=== PATIENT | male | born 1970 | race Caucasian/White ===

== ENCOUNTER 2016-11-28 11:45 | Emergency (ER) | payer SELFPAY ==
[~2016-11-28] VITALS: Ht 167.6 cm; Wt 86.2 kg
[2016-11-28 11:45] VITALS: BP 152/97
[~2016-11-28 11:45] MED LIST: ALPR2TAB2 PO; CIPR500T94 PO; DIAZ5TAB PO; FLUO40CA9 PO; HYDR-2678 PO; HYDR-971 PO; METR500T PO; OXYC-323 PO; PROP20TA PO; TRAZ100T12 PO
[2016-11-28] MEDS ORDERED: ALPR2TAB2 PO (11:59)
--- NOTE | 2016-11-28 11:59 | PHYS DOC ---
Past Medical History Past Medical History: Diverticulitis, Hypertension, [place], Migraines, Other Additional Past Medical Histor: CHRONIC BACK PAIN Past Surgical History: Angioplasty, Appendectomy, Other Additional Past Surgical Histo: hip, foot, hand, heart cath Alcohol Use: Occasionally Drug Use: Marijuana Adult General Chief Complaint Chief Complaint: BACK PAIN OR INJURY HPI HPI Patient is a 46 year old male with history of anxiety, hypertension, diverticulitis, migraine headaches, and CA who presents today with anxiety. Patient states he is going through a lot of stress. He states he stays with his mother and they lost their home due to finances. He states they had to give up all of their pets. Patient states as a result he has had a lot of anxiety. He states he cannot sleep. He states is very restless. Patient denies any suicidal homicidal ideation. He states is an appointment with his PCP for follow-up in 2 weeks to get his anxiety medicine. He is requesting a prescription for Xanax. Review of Systems Review of Systems Constitutional: Denies fever or chills [] Eyes: Denies change in visual acuity, redness, or eye pain [] HENT: Denies nasal congestion or sore throat [] Respiratory: Denies cough or shortness of breath [] Cardiovascular: No additional information not addressed in HPI [] GI: Denies abdominal pain, nausea, vomiting, bloody stools or diarrhea [] : Denies dysuria or hematuria [] Musculoskeletal: Denies back pain or joint pain [] Integument: Denies rash or skin lesions [] Neurologic: Denies headache, focal weakness or sensory changes [] Endocrine: Denies polyuria or polydipsia [] Psych:anxiety. Allergies Allergies Allergies Coded Allergies Type Severity Reaction Last Updated Verified morphine Allergy Intermediate hives, tolerates Dilaudid 06/01/14 Yes Physical Exam Physical Exam Constitutional: Well developed, well nourished, no acute distress, non-toxic appearance. [] HENT: Normocephalic, atraumatic, bilateral external ears normal, oropharynx moist, no oral exudates, nose normal. [] Eyes: PERRLA, EOMI, conjunctiva normal, no discharge. [] Neck: Normal range of motion, no tenderness, supple, no stridor. [] Cardiovascular:Heart rate regular rhythm, no murmur [] Lungs & Thorax: Bilateral breath sounds clear to auscultation [] Abdomen: Bowel sounds normal, soft, no tenderness, no masses, no pulsatile masses. [] Skin: Warm, dry, no erythema, no rash. [] Back: No tenderness, no CVA tenderness. [] Extremities: No tenderness, no cyanosis, no clubbing, ROM intact, no edema. [] Neurologic: Alert and oriented X 3, normal motor function, normal sensory function, no focal deficits noted. [] Psychologic: Affect normal, judgement normal, patient is restless, appears very anxious pacing around the room. Current Patient Data Vital Signs Vital Signs Date Time Temp Pulse Resp B/P Pulse Ox O2 Delivery O2 Flow Rate FiO2 11/28/16 11:45 98.2 67 18 98 Room Air 98.2 EKG EKG [] Radiology/Procedures Radiology/Procedures [] Course & Med Decision Making Course & Med Decision Making Pertinent Labs and Imaging studies reviewed. (See chart for details) This is a 46-year-old male patient well known in this ED who presents today for anxiety. He is going through overwhelming stress. The family had to loose their home recently, they also had to give up with their pets. Patient is very anxious. He is supposed to be taking Xanax which he is out of. He has an appointment with his own primary care doctor in 2 weeks. Gave this patient a short supply of Xanax. He is not homicidal suicidal. Recommended he follows up with his own doctor as soon as possible. Dragon Disclaimer Dragon Disclaimer This electronic medical record was generated, in whole or in part, using a voice recognition dictation system. Departure Departure Impression: Primary Impression: Anxiety Additional Impression: Stress Disposition: 01 HOME, SELF-CARE Condition: STABLE Referrals: NO PCP (PCP) FLOYD NO MD please follow up with your doctor in 1-7 days Patient Instructions: Anxiety and Panic Attacks Additional Instructions: You were seen for anxiety. Please follow up with your doctor as soon as possible Scripts Alprazolam (Xanax)2 Mg Tablet1 Tab PO TID #30 TAB Prov:NILDA UNDERWOOD APRN 11/28/16 Problem Qualifiers NILDA UNDERWOOD IRMA Nov 28, 2016 11:59
== END 2016-11-28 12:05 | disposition home or self-care (01) ==
LOC: ER 11:45
DX: F41.9 Anxiety disorder, unspecified (principal); F43.9 Reaction to severe stress, unspecified; I10 Essential (primary) hypertension; G89.29 Other chronic pain; G43.909 Migraine, unspecified, not intractable, without status migrainosus; I25.2 Old myocardial infarction; F12.10 Cannabis abuse, uncomplicated; Z95.1 Presence of aortocoronary bypass graft; Z88.5 Allergy status to narcotic agent
CPT/HCPCS: 99284

== ENCOUNTER 2017-02-12 21:10 | Emergency (ER) | payer SELFPAY ==
[2017-02-12 21:10] VITALS: BP 175/114
--- NOTE | 2017-02-12 21:28 | PHYS DOC ---
Past Medical History Past Medical History: Diverticulitis, Hypertension, [place], Migraines, Other Additional Past Medical Histor: CHRONIC BACK PAIN Past Surgical History: Angioplasty, Appendectomy, Other Additional Past Surgical Histo: hip, foot, hand, heart cath Alcohol Use: Occasionally Drug Use: Marijuana Adult General Chief Complaint Chief Complaint: PAIN CONTROL HPI HPI Patient is a 46 year old male with history of chronic hypertension, chronic neck pain, chronic low back pain, who presents today with exacerbation of chronic neck pain bilateral low back pain and left foot pain. Patient states he fell down getting out of his car a couple days ago this exacerbated his pain. Patient denies any loss of consciousness. Mother works in the ED Review of Systems Review of Systems Constitutional: Denies fever or chills [] Eyes: Denies change in visual acuity, redness, or eye pain [] HENT: Denies nasal congestion or sore throat [] Respiratory: Denies cough or shortness of breath [] Cardiovascular: No additional information not addressed in HPI [] GI: Denies abdominal pain, nausea, vomiting, bloody stools or diarrhea [] : Denies dysuria or hematuria [] Musculoskeletal: exacerbation of chronic neck pain bilateral low back pain and left foot pain Integument: Denies rash or skin lesions [] Neurologic: Denies headache, focal weakness or sensory changes [] Endocrine: Denies polyuria or polydipsia [] Current Medications Current Medications Current Medications Medications (Trade) Dose Ordered Sig/Khloe Start Time Stop Time Status Last Admin Dose Admin Dexamethasone Sodium Phosphate (Decadron) 10 mg 1X ONCE 02/12/17 21:30 02/12/17 21:31 DC 02/12/17 21:31 10 MG Diazepam (Valium) 5 mg 1X ONCE 02/12/17 21:30 02/12/17 21:31 DC 02/12/17 21:32 5 MG Hydromorphone HCl (Dilaudid) 2 mg 1X ONCE 02/12/17 21:30 02/12/17 21:31 DC 02/12/17 21:34 2 MG Allergies Allergies Allergies Coded Allergies Type Severity Reaction Last Updated Verified morphine Allergy Intermediate hives, tolerates Dilaudid 06/01/14 Yes Physical Exam Physical Exam Constitutional: Well developed, well nourished, no acute distress, non-toxic appearance. [] HENT: Normocephalic, atraumatic, bilateral external ears normal, oropharynx moist, no oral exudates, nose normal. [] Eyes: PERRLA, EOMI, conjunctiva normal, no discharge. [] Neck: Normal range of motion, no tenderness, supple, no stridor. [] Cardiovascular:Heart rate regular rhythm, no murmur [] Lungs & Thorax: Bilateral breath sounds clear to auscultation [] Abdomen: Bowel sounds normal, soft, no tenderness, no masses, no pulsatile masses. [] Skin: Warm, dry, no erythema, no rash. [] Back: Diffuse paraspinal muscle tenderness to bilateral lumbar spine, no midline lumbar spine tenderness, no CVA tenderness. [] Extremities: No tenderness, no cyanosis, no clubbing, ROM intact, no edema. [] Neurologic: Alert and oriented X 3, normal motor function, normal sensory function, no focal deficits noted. [] Psychologic: Affect normal, judgement normal, mood normal. [] EKG EKG [] Radiology/Procedures Radiology/Procedures [] Course & Med Decision Making Course & Med Decision Making Pertinent Labs and Imaging studies reviewed. (See chart for details) Patient is in the ED with exacerbation of exacerbation of chronic neck pain bilateral low back pain and left foot pain. He was offered x-rays of the left foot considering his stated this exacerbation began after he fell couple days ago. He declined. He was given pain relief and discharged. ZAY Lux works in the ED. Dragon Disclaimer Dragon Disclaimer This electronic medical record was generated, in whole or in part, using a voice recognition dictation system. Departure Departure Impression: Primary Impression: Back pain Additional Impressions: Foot pain, left Chronic neck pain Disposition: 01 HOME, SELF-CARE Condition: STABLE Referrals: NO PCP (PCP) Follow-up with your own doctor in one week Patient Instructions: Back Pain, Adult, [id number] Additional Instructions: You were seen for chronic pain. Follow-up with your doctor as soon as possible. Scripts Hydrocodone/Apap 5-325 (NORCO 5-325 TABLET) 1 Each Tablet 1 TAB PO PRN Q6HRS Y for PAIN, #6 TAB 0 Refills Prov: NILDA UNDERWOOD TIME STUDY ANALYST 02/12/17 Problem Qualifiers Primary Impression: Back pain Back pain location: low back pain Chronicity: chronic Back pain laterality : bilateral Sciatica presence: with sciatica Sciatica laterality: bilateral sciatica Qualified Codes: M54.42 - Lumbago with sciatica, left side ; M54.41 - Lumbago with sciatica, right side; G89.29 - Other chronic pain NILDA UNDERWOOD APRN Feb 12, 2017 21:28
[2017-02-12] MEDS ORDERED: DEXAMETHASONE SOD PHOS 20 MG/5 ML VIAL. IM ONE (21:30)
[2017-02-12] MEDS ORDERED: HYDROmorphone 2 MG/ML VIAL IM ONE (21:30)
[2017-02-12] MEDS ORDERED: HYDR-971 PO (21:39)
== END 2017-02-12 21:46 | disposition home or self-care (01) ==
LOC: ER 21:10
DX: M54.42 Lumbago with sciatica, left side (principal); M54.41 Lumbago with sciatica, right side; G89.29 Other chronic pain; M54.2 Cervicalgia; M79.672 Pain in left foot; I10 Essential (primary) hypertension; I25.2 Old myocardial infarction; G43.909 Migraine, unspecified, not intractable, without status migrainosus; F12.10 Cannabis abuse, uncomplicated; Z98.61 Coronary angioplasty status; Z88.5 Allergy status to narcotic agent
CPT/HCPCS: 96372; 99284; J1100; J1170; J3360

== ENCOUNTER 2017-03-12 20:00 | Emergency (ER) | payer SELFPAY ==
[~2017-03-12] VITALS: Ht 167.6 cm; Wt 86.2 kg
--- NOTE | 2017-03-12 20:38 | RAD ---
Indication: Fall one week ago with posterior neck pain. Axial imaging through the cervical spine was performed without contrast. Sagittal and coronal reformations were also performed. One or more of the following individualized dose reduction techniques were utilized for this examination: 1. Automated exposure control 2. Adjustment of the mA and/or kV according to patient size 3. Use of iterative reconstruction technique Curvature and alignment is normal. There is multilevel degenerative disc disease with variable disc space narrowing and marginal spurring. No fractures are seen. The odontoid is intact. The prevertebral tissues are normal. IMPRESSION: Cervical spondylosis. No acute bony abnormality is detected. Electronically signed by: Daniel Daniel MD (03/12/2017 8:35 PM) [facility]
[2017-03-12] MEDS ORDERED: KETOROLAC 15 MG/ML VIAL. IV ONE (21:00)
[2017-03-12] MEDS ORDERED: HYDROmorphone 2 MG/ML VIAL IV ONE ×2 (21:00→22:15)
[2017-03-12] MEDS ORDERED: ONDANSETRON PF 4 MG/2 ML VIAL. IV ONE (21:00)
[2017-03-12] MEDS ORDERED: CYCLOBENZAPRINE 10 MG TABLET. PO ONE (21:00)
--- NOTE | 2017-03-12 21:29 | RAD ---
CT HEAD WO CONTRAST dated 03/12/2017 9:15 PM Indication: Head pain, recent fall nausea . Comparison: 06/15/2015 Technique: Contiguous axial imaging of the head was performed from skull base to vertex. No contrast administered. One or more of the following individualized dose reduction techniques were utilized for this examination: 1. Automated exposure control 2. Adjustment of the mA and/or kV according to patient size 3. Use of iterative reconstruction technique Findings: Ventricles and sulci are mildly prominent for age. No midline shift or mass effect. Mild patchy low density in the deep/subcortical periventricular white matter. No hemorrhage or extra-axial collection. Posterior fossa and brainstem unremarkable. Utilized paranasal sinuses and mastoid air cells are clear. No acute calvarial abnormality. IMPRESSION: 1. No evidence of acute intracranial hemorrhage or mass. 2. Mild chronic small vessel ischemic changes and atrophy. Electronically signed by: Devyn Berman MD (03/12/2017 9:26 PM) [facility]
[2017-03-12] MEDS ORDERED: CYCL10TA2 PO (21:56)
[2017-03-12] MEDS ORDERED: TRAM-48 PO (21:56)
[2017-03-12] MEDS ORDERED: NAPR500T PO (21:56)
--- NOTE | 2017-03-12 21:56 | PHYS DOC ---
Past Medical History Past Medical History: Diverticulitis, Hypertension, [place], Migraines, Other Additional Past Medical Histor: CHRONIC BACK/NECK PAIN, DRUG DEPENDENCE Past Surgical History: Angioplasty, Appendectomy, Other Additional Past Surgical Histo: hip, foot, hand Alcohol Use: Heavy Additional Information: drinks "about 2 times a week" per pt Drug Use: Cocaine, Marijuana Adult General Chief Complaint Chief Complaint: NECK INJURY HPI HPI Patient is a 46 year old gentleman who presents here today secondary to pain to his neck and head. Patient reports that approximately 3 weeks ago on February 12 he fell down and hit his head on a curb. Patient reports that he was seen and evaluated that time he was told that everything looked normal. Patient presents here today secondary to intractable pain. Patient denies any other symptoms at this time. Patient has any fevers shakes chills nausea vomiting diarrhea. Patient has any weakness his upper or lower 70s. Patient reports he feels nauseous however no vomiting or diarrhea. 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 She reports she's got pain to both shoulders secondary to arthritis to both shoulders. Patient reports a history significant for coronary artery disease and hypertension. Patient has any diabetes liver longer kidney problems. Patient does have a history of rheumatoid arthritis. Patient's ER workup was significant for tenderness to palpation diffusely throughout his neck. Patient's motor exam was unremarkable. Patient is 5 out of 5 upper and lower 70 strength. Patient's shoulder shrug is 5 out of 5. Patient' s cranial nerves were all normal. While here the patient has CT scan of his head and C-spine which did not show any acute pathology. There were no fractures or bleeds noted on the CT scan. While here the patient received Dilaudid 1 mg IV Toradol and Flexeril. Patient reports significant improvement in discomfort however still having some moderate pain in his neck. Patient is requesting that we give him a second shot to help his pain and is requesting something to assist him at home other than ibuprofen. Review of systems: Constitutional: Denies fever or chills Eyes: Denies change in visual acuity, redness, or eye pain HENT: Denies nasal congestion or sore throat All other review systems are negative except as documented in the history of present illness portion. Physical exam: Constitutional: Cachectic appearing no acute distress, non-toxic appearance. HENT: Normocephalic, atraumatic, bilateral external ears normal, oropharynx moist, no oral exudates, nose normal. 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 Neck: See above, supple, no stridor Cardiovascular:Heart rate regular rhythm Lungs & Thorax: Bilateral breath sounds clear to auscultation Abdomen: Soft nondistended no rebound or guarding no tenderness at McBurney's point, Medrano's sign, patient has normal active bowel sounds, she has mild diffuse tenderness to palpation. Skin: Warm, dry, no erythema, no rash. Back: No tenderness, no CVA tenderness. Patient has pain to his lower back or reports this is chronic. Patient has no new tenderness Extremities: No tenderness, no cyanosis, no clubbing, ROM intact, no edema. Neurologic: Alert and oriented X 3, normal motor function, normal sensory function, no focal deficits noted. Psychologic: Affect normal, judgement normal, mood normal. Assessment and plan: Head trauma with neck pain. Patient's ER workup has been unremarkable for any acute pathology. There is no evidence of intracranial or neurological pathology by exam and CT scan. Patient is stable to be discharged home. Patient was given a prescription for Ultram and Flexeril and is to continue ibuprofen at home. C-collar has been removed. Current Medications Current Medications Current Medications Medications (Trade) Dose Ordered Sig/Khloe Start Time Stop Time Status Last Admin Dose Admin Cyclobenzaprine HCl (Flexeril) 10 mg 1X ONCE 03/12/17 21:00 03/12/17 21:01 DC 03/12/17 21:07 10 MG Hydromorphone HCl (Dilaudid) 1 mg 1X ONCE 03/12/17 21:00 03/12/17 21:01 DC 03/12/17 21:08 1 MG Ketorolac Tromethamine (Toradol) 15 mg 1X ONCE 03/12/17 21:00 03/12/17 21:01 DC 03/12/17 21:08 15 MG Ondansetron HCl (Zofran) 4 mg 1X ONCE 03/12/17 21:00 03/12/17 21:01 DC 03/12/17 21:07 4 MG Allergies Allergies Allergies Coded Allergies Type Severity Reaction Last Updated Verified morphine Allergy Intermediate hives, tolerates Dilaudid 06/01/14 Yes Current Patient Data Vital Signs Vital Signs Date Time Temp Pulse Resp B/P (MAP) Pulse Ox O2 Delivery O2 Flow Rate FiO2 03/12/17 21:09 91 20 147/101 (116) 98 Room Air 03/12/17 20:00 97.8 97.8 EKG EKG [] Radiology/Procedures Radiology/Procedures [] Course & Med Decision Making Course & Med Decision Making Pertinent Labs and Imaging studies reviewed. (See chart for details) [] Dragon Disclaimer Dragon Disclaimer This electronic medical record was generated, in whole or in part, using a voice recognition dictation system. Departure Departure Impression: Primary Impression: Head trauma Additional Impression: Neck injury Disposition: HOME, SELF-CARE Condition: IMPROVED Referrals: NO PCP (PCP) Patient Instructions: Soft Tissue Injury of the Neck Scripts Tramadol Hcl (ULTRAM) 50 Mg Tablet 1 TAB PO Q6HRS, #20 TAB Prov: ESPINOZA DANIELSON MD 03/12/17 Naproxen (NAPROSYN) 500 Mg Tablet 500 MG PO BID, #20 TAB Prov: ESPINOZA DANIELSON MD 03/12/17 Cyclobenzaprine Hcl (CYCLOBENZAPRINE HCL) 10 Mg Tablet 10 MG PO TID Y for MUSCLE PAIN, #20 TAB Prov: ESPINOZA DANIELSON MD 03/12/17 Problem Qualifiers ESPINOZA DANIELSON MD Mar 12, 2017 21:56
[2017-03-12 21:59] VITALS: BP 138/86
== END 2017-03-12 22:15 | disposition home or self-care (01) ==
LOC: ER 20:00
DX: S09.90XA Unspecified injury of head, initial encounter (principal); S19.9XXA Unspecified injury of neck, initial encounter; I10 Essential (primary) hypertension; I25.2 Old myocardial infarction; G43.909 Migraine, unspecified, not intractable, without status migrainosus; G89.29 Other chronic pain; F10.10 Alcohol abuse, uncomplicated; I25.10 Atherosclerotic heart disease of native coronary artery without angina pectoris; M06.9 Rheumatoid arthritis, unspecified; Z88.5 Allergy status to narcotic agent; Z98.61 Coronary angioplasty status; Z90.49 Acquired absence of other specified parts of digestive tract; W10.1XXA Fall (on)(from) sidewalk curb, initial encounter; Y93.89 Activity, other specified; Y92.89 Other specified places as the place of occurrence of the external cause; Y99.8 Other external cause status
CPT/HCPCS: 70450; 72125; 96374; 96375; 96376; 99284; J1170; J1885; J2405

== ENCOUNTER 2017-04-15 17:40 | Observation (INO) | payer SELFPAY ==
[~2017-04-15] VITALS: Ht 167.6 cm; Wt 83.9 kg
[~2017-04-15 17:40] MED LIST changes: +CYCL10TA2 PO; +NAPR500T PO; +TRAM-48 PO
--- NOTE | 2017-04-15 17:56 | PHYS DOC ---
Past Medical History Past Medical History: Diverticulitis, Hypertension, CT, Migraines, Other Additional Past Medical Histor: CHRONIC BACK/NECK PAIN, DRUG DEPENDENCE Past Surgical History: Angioplasty, Appendectomy, Other Additional Past Surgical Histo: hip, foot, hand Alcohol Use: Heavy Drug Use: Cocaine, Marijuana Adult General Chief Complaint Chief Complaint: MECHANICAL FALL HPI HPI Patient is a 46 year old male with history of hypertension, CT, migraine headaches, arthritis in his shoulders and back, who presents today with 10 out of 10 neck pain that has been going on for the last 3 months. Patient states he fell down 3 months ago. He states he was seen in the ED last month and they did CTs of the cervical spine as well as head which were negative for any acute findings. Patient states the pain has been very unbearable. He states the medications he was given to use at home including Flexeril are not helping. Patient denies any new injuries. He states the pain is radiating to the right upper extremity. Denies any weakness to bilateral upper extremities. Denies any numbness or tingling to bilateral upper extremities. Review of Systems Review of Systems Constitutional: Denies fever or chills [] Eyes: Denies change in visual acuity, redness, or eye pain [] HENT: Denies nasal congestion or sore throat [] Respiratory: Denies cough or shortness of breath [] Cardiovascular: No additional information not addressed in HPI [] GI: Denies abdominal pain, nausea, vomiting, bloody stools or diarrhea [] : Denies dysuria or hematuria [] Musculoskeletal: neck pain Integument: Denies rash or skin lesions [] Neurologic: Denies headache, focal weakness or sensory changes [] Current Medications Current Medications Current Medications Medications (Trade) Dose Ordered Sig/[facility] Start Time Stop Time Status Last Admin Dose Admin Alprazolam (Xanax) 0.5 mg TID PRN 04/15/17 18:15 UNV Hydromorphone HCl (Dilaudid) 1 mg Q3HRS PRN 04/15/17 18:15 UNV Ondansetron HCl (Zofran) 4 mg PRN Q8HRS PRN 04/15/17 18:15 04/16/17 18:14 Allergies Allergies Allergies Coded Allergies Type Severity Reaction Last Updated Verified morphine Allergy Intermediate hives, tolerates Dilaudid 06/01/14 Yes Physical Exam Physical Exam Constitutional: Well developed, well nourished, no acute distress, non-toxic appearance. [] HENT: Normocephalic, atraumatic, bilateral external ears normal, oropharynx moist, no oral exudates, nose normal. [] Eyes: PERRLA, EOMI, conjunctiva normal, no discharge. [] Neck: No cervical spine deformity noted, tenderness to paraspinal muscles of the cervical spine as well as slight midline tenderness to the cervical spine on exam supple, no stridor. [] Cardiovascular:Heart rate regular rhythm, no murmur [] Lungs & Thorax: Bilateral breath sounds clear to auscultation [] Abdomen: Bowel sounds normal, soft, no tenderness, no masses, no pulsatile masses. [] Skin: Warm, dry, no erythema, no rash. [] Back: No tenderness, no CVA tenderness. [] Extremities: No tenderness, no cyanosis, no clubbing, ROM intact, no edema. 5 out of 5 strength to bilateral upper extremities as well as shoulder shrug bilaterally. Adequate radial medial and ulnar sensation to bilateral upper extremities. Neurologic: Alert and oriented X 3, normal motor function, normal sensory function, no focal deficits noted. [] Psychologic: Affect normal, judgement normal, mood normal. [] Current Patient Data Vital Signs Vital Signs Date Time Temp Pulse Resp B/P (MAP) Pulse Ox O2 Delivery O2 Flow Rate FiO2 04/15/17 17:46 99.0 92 16 99 Room Air 99.0 EKG EKG [] Radiology/Procedures Radiology/Procedures [] Course & Med Decision Making Course & Med Decision Making Pertinent Labs and Imaging studies reviewed. (See chart for details) This is a 46-year-old male patient presenting to the ED today with intractable neck pain that has been going on for 2 months after he fell. Patient had CTs of the cervical spine done on March 12, 2017 which were negative for any acute findings. Patient is requesting to be admitted for pain management as well as to be able to see a specialist. Blood pressure on arrival to the ED was 194/127, patient states is from his pain. He does have history of hypertension and states he has not taken his propranolol for months. Consulted with Dr. Ceron who accepted patient for admission Call was placed for Neurosurgery. 18:[address] Peters from neurosurgery who will follow-up with patient. MRI of the cervical spine was ordered to be done in AM. Jayceon Disclaimer Dragon Disclaimer This electronic medical record was generated, in whole or in part, using a voice recognition dictation system. Departure Departure Impression: Primary Impression: Fall from standing Additional Impressions: Cervical radiculopathy Accelerated hypertension Chronic neck pain Disposition: ADMITTED INPATIENT Admitting Physician: Emily Ceron Condition: STABLE Referrals: NO PCP (PCP) Problem Qualifiers Primary Impression: Fall from standing Encounter type: initial encounter Qualified Codes: W19.XXXA - Unspecified fall, initial encounter NILDA UNDERWOOD PATIENT ACCESS REPRESENTATIVE Apr 15, 2017 17:55
[2017-04-15] MEDS ORDERED: cloNIDine HCL 0.1 MG TABLET PO PRN (18:15)
[2017-04-15] MEDS ORDERED: KETOROLAC 30 MG/ML INJ. IV ONE (18:15)
[2017-04-15] MEDS ORDERED: ONDANSETRON PF 4 MG/2 ML VIAL. IV PRN (18:15)
[2017-04-15 18:54] LABS: BASO # 0.1 x10^3/uL (0.0-0.2); BASO % 1 % (0-3); EOS % 1 % (0-3); HEMATOCRIT 51.6 % (39.0-53.0); HEMOGLOBIN 17.1 g/dL (13.0-17.5); LYMPH # 1.6 x10^3/uL (1.0-4.8); LYMPH % 16 % (24-48); MEAN CORPUSCULAR HEMOGLOBIN 33 pg (25-35); MEAN CORPUSCULAR HGB CONC 33 g/dL (31-37); MEAN CORPUSCULAR VOLUME 98 fL (79-100); MONO % 7 % (0-9); NEUT % 75 % (31-73); PLATELET COUNT 354 x10^3/uL (140-400); RED BLOOD COUNT 5.26 x10^6/uL (4.30-5.70); RED CELL DISTRIBUTION WIDTH 16.2 % (11.5-14.5); WHITE BLOOD COUNT 9.7 x10^3/uL (4.0-11.0)
[2017-04-15] MEDS ORDERED: PROPRANOLOL 10 MG TABLET. PO SCH (19:00)
[2017-04-15 19:03] LABS: CALCIUM 9.1 mg/dL (8.5-10.1); CREATININE 0.8 mg/dL (0.7-1.3); GFR 103.6; POTASSIUM 4.1 mmol/L (3.5-5.1); PROTHROMBIN TIME PATIENT 12.6 SEC (11.7-14.0)
[2017-04-15] MEDS: HYDROmorphone 2 MG/ML VIAL IV PRN (20:04)
[2017-04-15] MEDS: ALPRAZolam 0.5 MG TABLET PO PRN (20:06)
[2017-04-15 20:45] VITALS: BP 177/125
[2017-04-15] MEDS ORDERED: CYCLOBENZAPRINE 10 MG TABLET. PO PRN (22:15)
[2017-04-15] MEDS ORDERED: oxyCODONE/APAP 5/325 1 TAB TABLET PO PRN (22:15)
[2017-04-15] MEDS ORDERED: HYDROcodone/APAP 5/325MG 1 TAB TABLET PO PRN ×2 (22:15)
[2017-04-15] MEDS ORDERED: diazePAM 5 MG TABLET PO PRN (22:15)
[2017-04-15] MEDS: PROPRANOLOL 10 MG TABLET. PO SCH (22:19)
[2017-04-15] MEDS ORDERED: ALPRAZolam 1 MG TABLET PO PRN (22:30)
[2017-04-15] MEDS: DEXAMETHASONE SOD PHOS 20 MG/5 ML VIAL. IV SCH (22:38)
[2017-04-15] MEDS: amLODIPine BESYLATE 10 MG TABLET PO SCH (22:39)
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
[2017-04-15 23:00] VITALS: BP 179/127
[2017-04-15] MEDS: traMADol 50 MG TABLET PO SCH (23:25)
[2017-04-16] MEDS: HYDROmorphone 2 MG/ML VIAL IV PRN (00:50)
[2017-04-16] MEDS: ALPRAZolam 0.5 MG TABLET PO PRN (00:50)
[2017-04-16 03:00] VITALS: BP 138/96
[2017-04-16 05:18] LABS: BASO % 0 % (0-3); EOS % 0 % (0-3); HEMATOCRIT 50.3 % (39.0-53.0); LYMPH # 0.5 x10^3/uL (1.0-4.8); LYMPH % 5 % (24-48); MEAN CORPUSCULAR HEMOGLOBIN 33 pg (25-35); MEAN CORPUSCULAR HGB CONC 34 g/dL (31-37); MEAN CORPUSCULAR VOLUME 97 fL (79-100); MONO % 1 % (0-9); NEUT % 94 % (31-73); PLATELET COUNT 359 x10^3/uL (140-400); RED BLOOD COUNT 5.22 x10^6/uL (4.30-5.70); RED CELL DISTRIBUTION WIDTH 16.3 % (11.5-14.5); WHITE BLOOD COUNT 10.4 x10^3/uL (4.0-11.0)
[2017-04-16 05:35] LABS: CALCIUM 8.7 mg/dL (8.5-10.1); CREATININE 0.8 mg/dL (0.7-1.3); GFR 103.6; POTASSIUM 4.6 mmol/L (3.5-5.1)
[2017-04-16] MEDS: traMADol 50 MG TABLET PO SCH ×2 (05:47→11:26)
[2017-04-16 07:15] VITALS: BP 140/92
[2017-04-16] MEDS: DEXAMETHASONE SOD PHOS 20 MG/5 ML VIAL. IV SCH (08:03)
[2017-04-16] MEDS: amLODIPine BESYLATE 10 MG TABLET PO SCH (08:04)
[2017-04-16] MEDS: PROPRANOLOL 10 MG TABLET. PO SCH (08:04)
[2017-04-16 08:31] LABS: PLT ESTIMATE ADEQUATE (ADEQUATE)
[2017-04-16] MEDS ORDERED: ALPRAZolam 1 MG TABLET PO SCH (09:00)
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
[2017-04-16] MEDS ORDERED: NAPROXEN 500 MG TABLET PO SCH (10:30)
[2017-04-16 10:55] VITALS: BP 113/80
--- NOTE | 2017-04-16 12:02 | PDOC3 ---
Discharge Summary Visit Information Date of Admission: Apr 15, 2017 Date of Discharge: Apr 16, 2017 Admitting Diagnosis Comment: 1, HTN accelerated 2. Shoulder and neck pain NOS after a fall - no injuries Final Diagnosis Problems Medical Problems: (1) Accelerated hypertension Status: Acute (2) Cervical radiculopathy Status: Acute (3) Chronic neck pain Status: Acute (4) Fall from standing Status: Acute Brief Hospital Course Allergies Allergies Coded Allergies Type Severity Reaction Last Updated Verified morphine Allergy Intermediate hives, tolerates Dilaudid 06/01/14 Yes Vital Signs Vital Signs Date Time Temp Pulse Resp B/P (MAP) Pulse Ox O2 Delivery O2 Flow Rate FiO2 04/16/17 11:26 Room Air 04/16/17 10:55 96.7 88 18 113/80 (91) 94 96.7 Lab Results Laboratory Tests Test 04/15/17 18:40 04/16/17 03:35 White Blood Count 9.7 x10^3/uL (4.0-11.0) 10.4 x10^3/uL (4.0-11.0) Red Blood Count 5.26 x10^6/uL (4.30-5.70) 5.22 x10^6/uL (4.30-5.70) Hemoglobin 17.1 g/dL (13.0-17.5) 17.0 g/dL (13.0-17.5) Hematocrit 51.6 % (39.0-53.0) 50.3 % (39.0-53.0) Mean Corpuscular Volume 98 fL (79-100) 97 fL (79-100) Mean Corpuscular Hemoglobin 33 pg (25-35) 33 pg (25-35) Mean Corpuscular Hemoglobin Concent 33 g/dL (31-37) 34 g/dL (31-37) Red Cell Distribution Width 16.2 % (11.5-14.5) 16.3 % (11.5-14.5) Platelet Count 354 x10^3/uL (140-400) 359 x10^3/uL (140-400) Neutrophils (%) (Auto) 75 % (31-73) 94 % (31-73) Lymphocytes (%) (Auto) 16 % (24-48) 5 % (24-48) Monocytes (%) (Auto) 7 % (0-9) 1 % (0-9) Eosinophils (%) (Auto) 1 % (0-3) 0 % (0-3) Basophils (%) (Auto) 1 % (0-3) 0 % (0-3) Neutrophils # (Auto) 7.3 x10^3uL (1.8-7.7) 9.8 x10^3uL (1.8-7.7) Lymphocytes # (Auto) 1.6 x10^3/uL (1.0-4.8) 0.5 x10^3/uL (1.0-4.8) Monocytes # (Auto) 0.7 x10^3/uL (0.0-1.1) 0.1 x10^3/uL (0.0-1.1) Eosinophils # (Auto) 0.1 x10^3/uL (0.0-0.7) 0.0 x10^3/uL (0.0-0.7) Basophils # (Auto) 0.1 x10^3/uL (0.0-0.2) 0.0 x10^3/uL (0.0-0.2) Prothrombin Time 12.6 SEC (11.7-14.0) Prothromb Time International Ratio 1.0 (0.8-1.1) Activated Partial Thromboplast Time 29 SEC (24-38) Sodium Level 139 mmol/L (136-145) 138 mmol/L (136-145) Potassium Level 4.1 mmol/L (3.5-5.1) 4.6 mmol/L (3.5-5.1) Chloride Level 105 mmol/L (98-107) 103 mmol/L (98-107) Carbon Dioxide Level 26 mmol/L (21-32) 25 mmol/L (21-32) Anion Gap 8 (6-14) 10 (6-14) Blood Urea Nitrogen 13 mg/dL (8-26) 11 mg/dL (8-26) Creatinine 0.8 mg/dL (0.7-1.3) 0.8 mg/dL (0.7-1.3) Estimated GFR (Cockcroft-Gault) 103.6 103.6 Glucose Level 95 mg/dL (70-99) 173 mg/dL (70-99) Calcium Level 9.1 mg/dL (8.5-10.1) 8.7 mg/dL (8.5-10.1) Ethyl Alcohol Level < 10 mg/dL (0-10) Segmented Neutrophils % 91 % (35-66) Lymphocytes % 5 % (24-48) Monocytes % 4 % (0-10) Platelet Estimate Adequate (ADEQUATE) Laboratory Tests Test 04/15/17 18:40 04/16/17 03:35 White Blood Count 9.7 x10^3/uL (4.0-11.0) 10.4 x10^3/uL (4.0-11.0) Red Blood Count 5.26 x10^6/uL (4.30-5.70) 5.22 x10^6/uL (4.30-5.70) Hemoglobin 17.1 g/dL (13.0-17.5) 17.0 g/dL (13.0-17.5) Hematocrit 51.6 % (39.0-53.0) 50.3 % (39.0-53.0) Mean Corpuscular Volume 98 fL (79-100) 97 fL (79-100) Mean Corpuscular Hemoglobin 33 pg (25-35) 33 pg (25-35) Mean Corpuscular Hemoglobin Concent 33 g/dL (31-37) 34 g/dL (31-37) Red Cell Distribution Width 16.2 % (11.5-14.5) 16.3 % (11.5-14.5) Platelet Count 354 x10^3/uL (140-400) 359 x10^3/uL (140-400) Neutrophils (%) (Auto) 75 % (31-73) 94 % (31-73) Lymphocytes (%) (Auto) 16 % (24-48) 5 % (24-48) Monocytes (%) (Auto) 7 % (0-9) 1 % (0-9) Eosinophils (%) (Auto) 1 % (0-3) 0 % (0-3) Basophils (%) (Auto) 1 % (0-3) 0 % (0-3) Neutrophils # (Auto) 7.3 x10^3uL (1.8-7.7) 9.8 x10^3uL (1.8-7.7) Lymphocytes # (Auto) 1.6 x10^3/uL (1.0-4.8) 0.5 x10^3/uL (1.0-4.8) Monocytes # (Auto) 0.7 x10^3/uL (0.0-1.1) 0.1 x10^3/uL (0.0-1.1) Eosinophils # (Auto) 0.1 x10^3/uL (0.0-0.7) 0.0 x10^3/uL (0.0-0.7) Basophils # (Auto) 0.1 x10^3/uL (0.0-0.2) 0.0 x10^3/uL (0.0-0.2) Prothrombin Time 12.6 SEC (11.7-14.0) Prothromb Time International Ratio 1.0 (0.8-1.1) Activated Partial Thromboplast Time 29 SEC (24-38) Sodium Level 139 mmol/L (136-145) 138 mmol/L (136-145) Potassium Level 4.1 mmol/L (3.5-5.1) 4.6 mmol/L (3.5-5.1) Chloride Level 105 mmol/L (98-107) 103 mmol/L (98-107) Carbon Dioxide Level 26 mmol/L (21-32) 25 mmol/L (21-32) Anion Gap 8 (6-14) 10 (6-14) Blood Urea Nitrogen 13 mg/dL (8-26) 11 mg/dL (8-26) Creatinine 0.8 mg/dL (0.7-1.3) 0.8 mg/dL (0.7-1.3) Estimated GFR (Cockcroft-Gault) 103.6 103.6 Glucose Level 95 mg/dL (70-99) 173 mg/dL (70-99) Calcium Level 9.1 mg/dL (8.5-10.1) 8.7 mg/dL (8.5-10.1) Ethyl Alcohol Level < 10 mg/dL (0-10) Segmented Neutrophils % 91 % (35-66) Lymphocytes % 5 % (24-48) Monocytes % 4 % (0-10) Platelet Estimate Adequate (ADEQUATE) Brief Hospital Course Mr. Sales is a 46 old male who just moved here from [place], fell non injury fall, needed physiatry consult and meds narcs mostly to control pain. ALso HTN, needed Rx for propanolol and norvasc, PAin meds given to pt, Disucssed with family at bedside Seen and examined dc 31 mins cumulative, sudha RN, Rx all provided Discharge Information Condition at Discharge: Stable Disposition/Orders: D/C to Home Scheduled Alprazolam (Xanax), 1 TAB PO TID Diazepam (Valium), 5 MG PO PRN TID Propranolol Hcl (Propranolol Hcl), 20 MG PO BID, (Reported) Tramadol Hcl (Ultram), 1 TAB PO Q6HRS Scheduled PRN Alprazolam (Xanax), 2 MG PO PRN Q6HRS PRN for ANXIETY / AGITATION, (Reported) Cyclobenzaprine Hcl (Cyclobenzaprine Hcl), 10 MG PO TID PRN for MUSCLE PAIN Hydrocodone/Acetaminophen (Lortab 5-325 mg Tablet), 1 TAB PO PRN Q6HRS PRN for PAIN Hydrocodone/Apap 5-325 ([place] 5-325 Tablet), 1 TAB PO PRN Q6HRS PRN for PAIN RAMESH RODAS MD Apr 16, 2017 12:02
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
== END 2017-04-16 12:18 | disposition home or self-care (01) ==
LOC: ER 17:40 → 4 NORTH 17:58
PROVIDERS: ADMIT Internal Medicine; ATTEND Internal Medicine
DX: I10 Essential (primary) hypertension (principal); M47.22 Other spondylosis with radiculopathy, cervical region; G89.29 Other chronic pain; W18.30XA Fall on same level, unspecified, initial encounter; F11.20 Opioid dependence, uncomplicated; F20.9 Schizophrenia, unspecified; F41.9 Anxiety disorder, unspecified; G43.909 Migraine, unspecified, not intractable, without status migrainosus; G56.03 Carpal tunnel syndrome, bilateral upper limbs; I21.3 ST elevation (STEMI) myocardial infarction of unspecified site; I25.10 Atherosclerotic heart disease of native coronary artery without angina pectoris; I25.2 Old myocardial infarction; K57.92 Diverticulitis of intestine, part unspecified, without perforation or abscess without bleeding; Z82.49 Family history of ischemic heart disease and other diseases of the circulatory system; Z88.5 Allergy status to narcotic agent
CPT/HCPCS: 36415; 80048; 85007; 85025; 85610; 85730; 96374; 96375; 96376; 97110; 97162; 97165; 99285; G0378; G0379; G0480; G8978; G8979; G8980; J1100; J1170; J1885

== ENCOUNTER 2017-05-22 08:49 | Emergency (ER) | payer SELFPAY ==
[~2017-05-22] VITALS: Ht 167.6 cm; Wt 83.9 kg
[2017-05-22 09:10] VITALS: BP 179/131
--- NOTE | 2017-05-22 10:30 | RAD ---
Three-view left hand radiographs 05/22/2017 Clinical history: Increasing left hand pain. PA, lateral and oblique digital radiographs of the left hand were obtained. No fracture or dislocation of the left hand is seen. Mild degenerative changes are seen scattered throughout the interphalangeal joints of the left hand. Mild degenerative changes are seen involving the first carpal metacarpal joint Impression: Mild degenerative changes are seen involving the left hand as outlined above. No acute osseous abnormality is seen.
[2017-05-22] MEDS ORDERED: cefTRIAXone IM 1 GM VIAL IM ONE (10:45)
[2017-05-22] MEDS ORDERED: LIDOCAINE 1% PF 2 ML VIAL. INJ ONE (10:45)
[2017-05-22] MEDS ORDERED: HYDROmorphone 2 MG/ML VIAL IM ONE (10:45)
[2017-05-22] MEDS ORDERED: AMOX1TAB61 PO (10:59)
[2017-05-22] MEDS ORDERED: TRAM-48 PO (10:59)
--- NOTE | 2017-05-22 10:59 | PHYS DOC ---
Past Medical History Past Medical History: Diverticulitis, Hypertension, [place], Migraines, Other Additional Past Medical Histor: CHRONIC BACK/NECK PAIN, DRUG DEPENDENCE Past Surgical History: Angioplasty, Appendectomy, Other Additional Past Surgical Histo: hip, foot, hand Alcohol Use: Heavy Drug Use: Cocaine, Marijuana Adult General Chief Complaint Chief Complaint: HAND PROBLEM HPI HPI Patient is a 47 year old male with history of uncontrolled hypertension, migraine headaches, [place], who presents today with mild left hand pain that has been going on for one week after being beaten by a dog. Review of Systems Review of Systems Constitutional: Denies fever or chills [] Eyes: Denies change in visual acuity, redness, or eye pain [] HENT: Denies nasal congestion or sore throat [] Respiratory: Denies cough or shortness of breath [] Cardiovascular: No additional information not addressed in HPI [] GI: Denies abdominal pain, nausea, vomiting, bloody stools or diarrhea [] : Denies dysuria or hematuria [] Musculoskeletal: Denies back pain or joint pain [] Integument: Left hand pain, Dog Bite to the left hand Neurologic: Denies headache, focal weakness or sensory changes [] Current Medications Current Medications Current Medications Medications (Trade) Dose Ordered Sig/Khloe Start Time Stop Time Status Last Admin Dose Admin Ceftriaxone Sodium (Rocephin Im) 1 gm 1X ONCE 05/22/17 10:45 05/22/17 10:46 DC Hydromorphone HCl (Dilaudid) 1 mg 1X ONCE 05/22/17 10:45 05/22/17 10:46 DC Lidocaine HCl (Xylocaine-Mpf 1% Vial) 2 ml 1X ONCE 05/22/17 10:45 05/22/17 10:46 DC Allergies Allergies Allergies Coded Allergies Type Severity Reaction Last Updated Verified morphine Allergy Intermediate hives, tolerates Dilaudid 06/01/14 Yes Physical Exam Physical Exam Constitutional: Well developed, well nourished, no acute distress, non-toxic appearance. [] HENT: Normocephalic, atraumatic, bilateral external ears normal, oropharynx moist, no oral exudates, nose normal. [] Eyes: PERRLA, EOMI, conjunctiva normal, no discharge. [] Neck: Normal range of motion, no tenderness, supple, no stridor. [] Cardiovascular:Heart rate regular rhythm, no murmur [] Lungs & Thorax: Bilateral breath sounds clear to auscultation [] Abdomen: Bowel sounds normal, soft, no tenderness, no masses, no pulsatile masses. [] Skin: Webspace between the left index finger and thumb with a puncture wound suspicious of a dog bite. Full range of motion to the left hand and fingers. +2 left radial pulse. Adequate radial medial sensation to the left hand. Cap refill less than 2 seconds the left fingers. Back: No tenderness, no CVA tenderness. [] Extremities: No tenderness, no cyanosis, no clubbing, ROM intact, no edema. [] Neurologic: Alert and oriented X 3, normal motor function, normal sensory function, no focal deficits noted. [] Psychologic: Affect normal, judgement normal, mood normal. [] Current Patient Data Vital Signs Vital Signs Date Time Temp Pulse Resp B/P (MAP) Pulse Ox O2 Delivery O2 Flow Rate FiO2 05/22/17 09:10 97.7 69 16 96 Room Air 97.7 EKG EKG [] Radiology/Procedures Radiology/Procedures []PROCEDURE: HAND LEFT 3V Three-view left hand radiographs 05/22/2017 Clinical history: Increasing left hand pain. PA, lateral and oblique digital radiographs of the left hand were obtained. No fracture or dislocation of the left hand is seen. Mild degenerative changes are seen scattered throughout the interphalangeal joints of the left hand. Mild degenerative changes are seen involving the first carpal metacarpal joint Impression: Mild degenerative changes are seen involving the left hand as outlined above. No acute osseous abnormality is seen. DICTATED and SIGNED BY: MARIA ALEJANDRA DANIELS MD DATE: 05/22/17 1024 CC: NO PCP; NON,STAFF ~ Course & Med Decision Making Course & Med Decision Making Pertinent Labs and Imaging studies reviewed. (See chart for details) Patient is in the ED with left hand pain from a dog bite one week ago. His vaccines are up-to-date. Left hand x-rays interpreted by radiologist were negative for any acute findings but noted for DJD. Patient was given Rocephin IM in the ED and discharged with Augmentin. Discharged with for pain Ultram. His blood pressure was in the 170s over 130s. Patient has history of chronic hypertension and does not take any medications. He has no complaints of chest pain or shortness of breath or headache, we talked about compliance and the need to follow-up with his PCP. Bishnu Disclaimer Dragon Disclaimer This electronic medical record was generated, in whole or in part, using a voice recognition dictation system. Departure Departure Impression: Primary Impression: Dog bite of left hand Additional Impressions: Degenerative joint disease of hand, left Accelerated hypertension Disposition: 01 HOME, SELF-CARE Condition: STABLE Referrals: NO PCP (PCP) DAJA GALICIA MD follow up next week Patient Instructions: Animal Bite, [id number], Arthritis, Degenerative-Brief , Hypertension Additional Instructions: You were seen for a dog bite of the left hand. Your left hand x-ray was negative for any acute findings but noted for arthritis. Take the prescribed antibiotics until completed. Take the pain medicines as needed. Follow-up with your own primary care doctor because your blood pressure is elevated. Ensure you are taking your blood pressure medicines. Scripts Tramadol Hcl (ULTRAM) 50 Mg Tablet 1 TAB PO Q6HRS, #30 TAB Prov: NILDA UNDERWOOD APRN 05/22/17 Amoxicillin/Potassium Clav (AUGMENTIN 875-125 TABLET) 1 Each Tablet 1 TAB PO BID, #20 TAB Prov: NILDA UNDERWOOD APRN 05/22/17 Problem Qualifiers Primary Impression: Dog bite of left hand Encounter type: initial encounter Qualified Codes: S61.452A - Open bite of left hand, initial encounter; W54.0XXA - Bitten by dog, initial encounter Additional Impressions: Degenerative joint disease of hand, left Osteoarthritis type: unspecified Qualified Codes: M19.042 - Primary osteoarthritis, left hand NILDA UNDERWOOD APRN May 22, 2017 10:59
== END 2017-05-22 11:09 | disposition home or self-care (01) ==
LOC: ER 08:49
DX: S61.452A Open bite of left hand, initial encounter (principal); M19.042 Primary osteoarthritis, left hand; I10 Essential (primary) hypertension; I25.2 Old myocardial infarction; G89.29 Other chronic pain; G43.909 Migraine, unspecified, not intractable, without status migrainosus; F10.10 Alcohol abuse, uncomplicated; Z98.61 Coronary angioplasty status; Z88.5 Allergy status to narcotic agent; W54.0XXA Bitten by dog, initial encounter; Y93.89 Activity, other specified; Y92.89 Other specified places as the place of occurrence of the external cause; Y99.8 Other external cause status
CPT/HCPCS: 73130; 96372; 99284; J0696; J1170

== ENCOUNTER 2017-07-23 20:08 | Emergency (ER) | payer SELFPAY ==
[~2017-07-23] VITALS: Ht 167.6 cm; Wt 81.6 kg
[~2017-07-23 20:08] MED LIST changes: +AMOX1TAB61 PO; +NAPR-683 PO; -NAPR500T PO
[2017-07-23] MEDS ORDERED: ONDANSETRON PF 4 MG/2 ML VIAL. IV ONE (20:30)
[2017-07-23] MEDS ORDERED: IV NORMAL SALINE 1000ML BAG 1,000 ML IV ONE (20:30)
[2017-07-23] MEDS ORDERED: KETOROLAC 15 MG/ML VIAL. IV ONE (20:30)
[2017-07-23 20:31] LABS: BASO # 0.1 x10^3/uL (0.0-0.2); BASO % 1 % (0-3); EOS % 1 % (0-3); HEMATOCRIT 57.5 % (39.0-53.0); HEMOGLOBIN 18.8 g/dL (13.0-17.5); LYMPH # 1.9 x10^3/uL (1.0-4.8); LYMPH % 18 % (24-48); MEAN CORPUSCULAR HEMOGLOBIN 33 pg (25-35); MEAN CORPUSCULAR HGB CONC 33 g/dL (31-37); MEAN CORPUSCULAR VOLUME 100 fL (79-100); MONO % 8 % (0-9); NEUT % 73 % (31-73); PLATELET COUNT 301 x10^3/uL (140-400); RED BLOOD COUNT 5.73 x10^6/uL (4.30-5.70); RED CELL DISTRIBUTION WIDTH 16.3 % (11.5-14.5); WHITE BLOOD COUNT 10.7 x10^3/uL (4.0-11.0)
[2017-07-23 20:41] LABS: CALCIUM 8.7 mg/dL (8.5-10.1); CREATININE 0.9 mg/dL (0.7-1.3); GFR 90.1; POTASSIUM 4.3 mmol/L (3.5-5.1)
[2017-07-23 20:48] LABS: ALBUMIN 3.7 g/dL (3.4-5.0); ALBUMIN/GLOBULIN RATIO 0.9 (1.0-1.7); TOTAL BILIRUBIN 0.3 mg/dL (0.2-1.0)
[2017-07-23 21:09] LABS: OBC FLU VALID
[2017-07-23 22:00] VITALS: BP 132/83
[2017-07-23] MEDS ORDERED: HYDROmorphone 2 MG/ML VIAL IV ONE ×2 (22:00→22:30)
[2017-07-23] MEDS ORDERED: AZIT250T PO (22:09)
--- NOTE | 2017-07-23 22:09 | PHYS DOC ---
Past Medical History Past Medical History: Diverticulitis, Hypertension, [place], Migraines, Other Additional Past Medical Histor: CHRONIC BACK/NECK PAIN, DRUG DEPENDENCE Past Surgical History: Angioplasty, Appendectomy, Other Additional Past Surgical Histo: hip, foot, hand Alcohol Use: Heavy Drug Use: Cocaine, Marijuana Adult General Chief Complaint Chief Complaint: CHEST PAIN HPI HPI Patient is a 47 year old [f__sex] who presents with [] Review of Systems Review of Systems Constitutional: Denies fever or chills [] Eyes: Denies change in visual acuity, redness, or eye pain [] HENT: Denies nasal congestion or sore throat [] Respiratory: Denies cough or shortness of breath [] Cardiovascular: No additional information not addressed in HPI [] GI: Denies abdominal pain, nausea, vomiting, bloody stools or diarrhea [] : Denies dysuria or hematuria [] Musculoskeletal: Denies back pain or joint pain [] Integument: Denies rash or skin lesions [] Neurologic: Denies headache, focal weakness or sensory changes [] Endocrine: Denies polyuria or polydipsia [] All other systems were reviewed and found to be within normal limits, except as documented in this note. Current Medications Current Medications Current Medications Medications (Trade) Dose Ordered Sig/Khloe Start Time Stop Time Status Last Admin Dose Admin Hydromorphone HCl (Dilaudid) 1 mg 1X ONCE 07/23/17 22:00 07/23/17 22:04 DC 07/23/17 22:04 1 MG Ketorolac Tromethamine (Toradol) 15 mg 1X ONCE 07/23/17 20:30 07/23/17 20:31 DC 07/23/17 20:40 15 MG Lorazepam (Ativan) 1 mg 1X ONCE 07/23/17 20:30 07/23/17 20:31 DC 07/23/17 20:40 1 MG Ondansetron HCl (Zofran) 4 mg 1X ONCE 07/23/17 20:30 07/23/17 20:31 DC 07/23/17 20:40 4 MG Sodium Chloride 1,000 ml @ 1,000 mls/hr 1X ONCE 07/23/17 20:30 07/23/17 21:29 DC 07/23/17 20:41 1,000 MLS/HR Allergies Allergies Allergies Coded Allergies Type Severity Reaction Last Updated Verified morphine Allergy Intermediate hives, tolerates Dilaudid 06/01/14 Yes Physical Exam Physical Exam Constitutional: Well developed, well nourished, no acute distress, non-toxic appearance. [] HENT: Normocephalic, atraumatic, bilateral external ears normal, oropharynx moist, no oral exudates, nose normal. [] Eyes: PERRLA, EOMI, conjunctiva normal, no discharge. [] Neck: Normal range of motion, no tenderness, supple, no stridor. [] Cardiovascular:Heart rate regular rhythm, no murmur [] Lungs & Thorax: Bilateral breath sounds clear to auscultation [] Abdomen: Bowel sounds normal, soft, no tenderness, no masses, no pulsatile masses. [] Skin: Warm, dry, no erythema, no rash. [] Back: No tenderness, no CVA tenderness. [] Extremities: No tenderness, no cyanosis, no clubbing, ROM intact, no edema. [] Neurologic: Alert and oriented X 3, normal motor function, normal sensory function, no focal deficits noted. [] Psychologic: Affect normal, judgement normal, mood normal. [] Current Patient Data Vital Signs Vital Signs Date Time Temp Pulse Resp B/P (MAP) Pulse Ox O2 Delivery O2 Flow Rate FiO2 07/23/17 20:18 97.9 104 22 154/100 (118) 99 Room Air 97.9 Lab Values Laboratory Tests Test 07/23/17 20:15 07/23/17 20:46 07/23/17 21:00 White Blood Count 10.7 x10^3/uL (4.0-11.0) Red Blood Count 5.73 x10^6/uL (4.30-5.70) H Hemoglobin 18.8 g/dL (13.0-17.5) H Hematocrit 57.5 % (39.0-53.0) H Mean Corpuscular Volume 100 fL (79-100) Mean Corpuscular Hemoglobin 33 pg (25-35) Mean Corpuscular Hemoglobin Concent 33 g/dL (31-37) Red Cell Distribution Width 16.3 % (11.5-14.5) H Platelet Count 301 x10^3/uL (140-400) Neutrophils (%) (Auto) 73 % (31-73) Lymphocytes (%) (Auto) 18 % (24-48) L Monocytes (%) (Auto) 8 % (0-9) Eosinophils (%) (Auto) 1 % (0-3) Basophils (%) (Auto) 1 % (0-3) Neutrophils # (Auto) 7.7 x10^3uL (1.8-7.7) Lymphocytes # (Auto) 1.9 x10^3/uL (1.0-4.8) Monocytes # (Auto) 0.9 x10^3/uL (0.0-1.1) Eosinophils # (Auto) 0.1 x10^3/uL (0.0-0.7) Basophils # (Auto) 0.1 x10^3/uL (0.0-0.2) Sodium Level 141 mmol/L (136-145) Potassium Level 4.3 mmol/L (3.5-5.1) Chloride Level 102 mmol/L (98-107) Carbon Dioxide Level 28 mmol/L (21-32) Anion Gap 11 (6-14) Blood Urea Nitrogen 13 mg/dL (8-26) Creatinine 0.9 mg/dL (0.7-1.3) Estimated GFR (Cockcroft-Gault) 90.1 BUN/Creatinine Ratio 14 (6-20) Glucose Level 150 mg/dL (70-99) H Calcium Level 8.7 mg/dL (8.5-10.1) Total Bilirubin 0.3 mg/dL (0.2-1.0) Aspartate Amino Transferase (AST) 76 U/L (15-37) H Alanine Aminotransferase (ALT) 88 U/L (16-63) H Alkaline Phosphatase 144 U/L (46-116) H Troponin I Quantitative < 0.017 ng/mL (0.000-0.055) SP-Nsl-H-Type Natriuretic Peptide 280 pg/mL (0-124) H Total Protein 8.0 g/dL (6.4-8.2) Albumin 3.7 g/dL (3.4-5.0) Albumin/Globulin Ratio 0.9 (1.0-1.7) L Influenza Type A Antigen Negative (NEGATIVE) Influenza Type B Antigen Negative (NEGATIVE) D-Dimer (Dayana) 0.27 ug/mlFEU (0.00-0.50) Laboratory Tests 12/22/17 20:15 Laboratory Tests 07/23/17 20:15 EKG EKG [] Radiology/Procedures Radiology/Procedures [] Course & Med Decision Making Course & Med Decision Making Pertinent Labs and Imaging studies reviewed. (See chart for details) [] Dragon Disclaimer Dragon Disclaimer This electronic medical record was generated, in whole or in part, using a voice recognition dictation system. Departure Departure Impression: Primary Impression: Acute chest wall pain Additional Impression: Bronchitis Disposition: HOME, SELF-CARE Condition: IMPROVED Referrals: NO PCP (PCP) Patient Instructions: Acute Bronchitis, Chest Wall Pain Scripts Azithromycin (ZITHROMAX) 250 Mg Tablet 1 PKG PO UD, #6 TAB Prov: ESPINOZA DANIELSON MD 07/23/17 Problem Qualifiers ESPINOZA DANIELSON MD Jul 23, 2017 22:09
--- NOTE | 2017-07-24 11:08 | EKG ---
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
--- NOTE | 2017-07-24 11:32 | RAD ---
PA AND LATERAL CHEST RADIOGRAPH Clinical Indication: Chest pain today. Comparison: Two-view chest 08/19/2014. Findings: The cardiomediastinal silhouette is normal. Pulmonary vasculature is normal. The lungs are clear. No pleural effusion or pneumothorax is seen. There is no acute bone abnormality. Tiny calcification projects of the left axilla, unchanged. IMPRESSION: No acute cardiopulmonary process.
== END 2017-07-23 22:25 | disposition home or self-care (01) ==
LOC: ER 20:08
DX: J40 Bronchitis, not specified as acute or chronic (principal); I10 Essential (primary) hypertension; G89.29 Other chronic pain; I25.2 Old myocardial infarction; F10.20 Alcohol dependence, uncomplicated; F12.10 Cannabis abuse, uncomplicated; F14.10 Cocaine abuse, uncomplicated; Z90.49 Acquired absence of other specified parts of digestive tract; Z98.61 Coronary angioplasty status; Z88.5 Allergy status to narcotic agent
CPT/HCPCS: 36415; 71020; 80053; 83880; 84484; 85025; 85379; 87804; 93005; 96361; 96374; 96375; 99285; J1170; J1885; J2060; J2405; J7030

== ENCOUNTER 2017-09-13 21:02 | Emergency (ER) | payer SELFPAY ==
[2017-09-13] MEDS: ONDANSETRON ODT 4 MG TAB.RAPDIS. PO ×2 (21:45)
[2017-09-13] MEDS: diazePAM 5 MG TABLET PO ×2 (21:45)
[2017-09-13] MEDS: HYDROmorphone 2 MG/ML VIAL IM ×2 (21:45)
== END 2017-09-13 21:55 | disposition home or self-care (01) ==
LOC: ER 21:02
DX: G89.29 Other chronic pain (principal); M25.532 Pain in left wrist; I10 Essential (primary) hypertension; M19.90 Unspecified osteoarthritis, unspecified site; I25.2 Old myocardial infarction; G43.909 Migraine, unspecified, not intractable, without status migrainosus; F10.20 Alcohol dependence, uncomplicated; F12.10 Cannabis abuse, uncomplicated; F14.10 Cocaine abuse, uncomplicated; Z90.49 Acquired absence of other specified parts of digestive tract; Z98.61 Coronary angioplasty status; Z88.5 Allergy status to narcotic agent
CPT/HCPCS: 96372; 99283; J1170; Q0162

== ENCOUNTER 2017-10-10 19:57 | Emergency (ER) | payer SELFPAY | END 2017-10-10 20:02 | disposition left against medical advice (07) | LOC: ER 20:02 | DX: R10.9 Unspecified abdominal pain (principal); Z53.21 Procedure and treatment not carried out due to patient leaving prior to being seen by health care provider ==

== ENCOUNTER 2017-12-04 18:27 | Emergency (ER) | payer SELFPAY ==
[2017-12-04] MEDS: diphenhydrAMINE HCL 25 MG CAPSULE PO (19:21)
[2017-12-04] MEDS: diazePAM 5 MG TABLET PO (19:21)
[2017-12-04] MEDS: MORPHINE SULFATE 10 MG/ML VIAL. IM (19:22)
== END 2017-12-04 19:24 | disposition home or self-care (01) ==
LOC: ER 18:27
DX: G89.29 Other chronic pain (principal); M54.2 Cervicalgia; I10 Essential (primary) hypertension; I25.2 Old myocardial infarction; F12.10 Cannabis abuse, uncomplicated; Z90.49 Acquired absence of other specified parts of digestive tract; Z88.5 Allergy status to narcotic agent
CPT/HCPCS: 90472; 96372; 99283; J2270; Q0163

== ENCOUNTER 2018-01-07 21:18 | Emergency (ER) | payer SELFPAY | END 2018-01-07 22:26 | disposition left against medical advice (07) | LOC: ER 22:26 | DX: G43.909 Migraine, unspecified, not intractable, without status migrainosus (principal); Z53.21 Procedure and treatment not carried out due to patient leaving prior to being seen by health care provider ==

== ENCOUNTER 2018-02-20 14:32 | Inpatient (IN) | payer SELFPAY ==
[2018-02-20] MEDS: fentaNYL PF VIAL 100 MCG/2 ML VIAL IV (15:05)
[2018-02-20 15:12] LABS: ADD MAN DIFF? NO
[2018-02-20 15:14] LABS: BASO # 0.1 x10^3/uL (0.0-0.2); BASO % 1 % (0-3); EOS # 0.1 x10^3/uL (0.0-0.7); EOS % 1 % (0-3); HEMATOCRIT 53.2 % (39.0-53.0); HEMOGLOBIN 18.3 g/dL (13.0-17.5); LYMPH # 1.1 x10^3/uL (1.0-4.8); LYMPH % 14 % (24-48); MEAN CORPUSCULAR HEMOGLOBIN 34 pg (25-35); MEAN CORPUSCULAR HGB CONC 34 g/dL (31-37); MEAN CORPUSCULAR VOLUME 100 fL (79-100); MONO # 0.7 x10^3/uL (0.0-1.1); MONO % 9 % (0-9); NEUT # 5.8 x10^3uL (1.8-7.7); NEUT % 76 % (31-73); PLATELET COUNT 273 x10^3/uL (140-400); RED BLOOD COUNT 5.34 x10^6/uL (4.30-5.70); RED CELL DISTRIBUTION WIDTH 16.2 % (11.5-14.5); WHITE BLOOD COUNT 7.7 x10^3/uL (4.0-11.0)
[2018-02-20 15:24] LABS: PARTIAL THROMBOPLASTIN TIME 26 SEC (24-38); PROTHROMBIN TIME PATIENT 12.2 SEC (11.7-14.0)
[2018-02-20 15:26] LABS: ANION GAP 10 (6-14); BLOOD UREA NITROGEN 14 mg/dL (8-26); CALCIUM 8.8 mg/dL (8.5-10.1); CARBON DIOXIDE 27 mmol/L (21-32); CHLORIDE 103 mmol/L (98-107); GFR 79.8; GLUCOSE 112 mg/dL (70-99); POTASSIUM 4.5 mmol/L (3.5-5.1); SODIUM 140 mmol/L (136-145)
[2018-02-20 15:37] LABS: TROPONINI < 0.017 ng/mL (0.000-0.055)
[2018-02-20] MEDS: IV NORMAL SALINE 1000ML BAG 1,000 ML IV (16:25)
[2018-02-20] MEDS: diphenhydrAMINE 50 MG/ML VIAL IVP (17:14)
[2018-02-20] MEDS ORDERED: ACETAMINOPHEN 325 MG TABLET. PO ×2 (17:15→18:00)
[2018-02-20] MEDS ORDERED: NITROGLYCERIN SUBLINGUAL 0.4 MG BOTTLE OF 25. SL (17:15)
[2018-02-20] MEDS ORDERED: ONDANSETRON PF 4 MG/2 ML VIAL. IV (17:15)
[2018-02-20] MEDS: PROCHLORPERAZINE 10 MG/2 ML VIAL. IV (17:16)
[2018-02-20] MEDS: KETOROLAC 30 MG/ML INJ. IV (17:17)
[2018-02-20] MEDS: NITROGLYCERIN OINT 1 GM PACKET. TP (17:21)
[2018-02-20] MEDS ORDERED: NICOTINE 14MG PATCH. TD (18:00)
[2018-02-20] MEDS ORDERED: hydrALAZINE 20 MG/ML VIAL. IVP (18:00)
[2018-02-20] MEDS ORDERED: MORPHINE SULFATE 10 MG/ML VIAL. IV (18:00)
[2018-02-20] MEDS ORDERED: DOCUSATE SODIUM 100 MG CAPSULE. PO (18:00)
[2018-02-20] MEDS: PANTOPRAZOLE 40 MG TABLET.DR. PO (19:49)
[2018-02-20] MEDS: ALPRAZolam 1 MG TABLET PO (19:49)
[2018-02-20] MEDS: ENOXAPARIN 40 MG/0.4 ML SYRINGE. SQ (19:49)
[2018-02-20] MEDS: ONDANSETRON PF 4 MG/2 ML VIAL. IV (19:50)
[2018-02-20] MEDS: amLODIPine BESYLATE 10 MG TABLET PO (19:50)
[2018-02-20] MEDS: MORPHINE SULFATE 2 MG/ML DISP.SYRIN. IV ×2 (19:51→22:04)
[2018-02-20] MEDS: LISINOPRIL 20 MG TABLET PO (20:03)
[2018-02-20] MEDS: traMADol 50 MG TABLET PO (21:38)
[2018-02-20 22:37] LABS: TROPONINI < 0.017 ng/mL (0.000-0.055)
[2018-02-21] MEDS: MORPHINE SULFATE 2 MG/ML DISP.SYRIN. IV ×3 (00:58→08:12)
[2018-02-21 02:02] LABS: TROPONINI < 0.017 ng/mL (0.000-0.055)
[2018-02-21] MEDS: PANTOPRAZOLE 40 MG TABLET.DR. PO (08:12)
[2018-02-21] MEDS: ALPRAZolam 1 MG TABLET PO ×2 (08:13→13:40)
[2018-02-21] MEDS: REGADENOSON 0.4 MG/5 ML DISP.SYRIN. IV (09:35)
[2018-02-21 10:11] LABS: ADD MAN DIFF? NO
[2018-02-21 10:22] LABS: BASO % 1 % (0-3); EOS # 0.1 x10^3/uL (0.0-0.7); EOS % 2 % (0-3); HEMATOCRIT 52.6 % (39.0-53.0); HEMOGLOBIN 17.8 g/dL (13.0-17.5); LYMPH # 1.9 x10^3/uL (1.0-4.8); LYMPH % 22 % (24-48); MEAN CORPUSCULAR HEMOGLOBIN 34 pg (25-35); MEAN CORPUSCULAR HGB CONC 34 g/dL (31-37); MEAN CORPUSCULAR VOLUME 101 fL (79-100); MONO # 0.7 x10^3/uL (0.0-1.1); MONO % 8 % (0-9); NEUT # 5.8 x10^3uL (1.8-7.7); NEUT % 68 % (31-73); PLATELET COUNT 227 x10^3/uL (140-400); RED BLOOD COUNT 5.19 x10^6/uL (4.30-5.70); RED CELL DISTRIBUTION WIDTH 15.8 % (11.5-14.5); WHITE BLOOD COUNT 8.5 x10^3/uL (4.0-11.0)
[2018-02-21] MEDS: amLODIPine BESYLATE 10 MG TABLET PO (10:30)
[2018-02-21] MEDS: LISINOPRIL 20 MG TABLET PO (10:32)
[2018-02-21 10:34] LABS: ANION GAP 8 (6-14); BLOOD UREA NITROGEN 11 mg/dL (8-26); CALCIUM 7.8 mg/dL (8.5-10.1); CARBON DIOXIDE 26 mmol/L (21-32); CHLORIDE 103 mmol/L (98-107); GFR 79.8; GLUCOSE 86 mg/dL (70-99); POTASSIUM 3.9 mmol/L (3.5-5.1); SODIUM 137 mmol/L (136-145)
[2018-02-21 10:51] LABS: THYROID STIM HORMONE (TSH) 2.217 uIU/mL (0.358-3.74)
[2018-02-21 12:25] LABS: CHOLESTEROL 179 mg/dL (0-200); HDLC 40 mg/dL (40-60); LDLC 112 mg/dL (0-100); NON-HDL CHOLESTEROL 139 mg/dL (0-129); TRIGLYCERIDES 135 mg/dL (0-150); VLDLC 27 mg/dL (0-40)
[2018-02-21 12:27] LABS: CHOLESTEROL/HDL RATIO 4.5
== END 2018-02-21 14:20 | disposition home or self-care (01) | DRG 392 ==
LOC: ER 14:32 → 2 SOUTH 17:05
DX: K21.9 Gastro-esophageal reflux disease without esophagitis (principal); K57.92 Diverticulitis of intestine, part unspecified, without perforation or abscess without bleeding; F19.20 Other psychoactive substance dependence, uncomplicated; R07.89 Other chest pain; F41.9 Anxiety disorder, unspecified; M19.90 Unspecified osteoarthritis, unspecified site; G43.909 Migraine, unspecified, not intractable, without status migrainosus; M54.2 Cervicalgia; Z95.5 Presence of coronary angioplasty implant and graft; F20.9 Schizophrenia, unspecified; F31.9 Bipolar disorder, unspecified; F17.210 Nicotine dependence, cigarettes, uncomplicated; Z91.19 Patient's noncompliance with other medical treatment and regimen; F12.10 Cannabis abuse, uncomplicated; Z79.899 Other long term (current) drug therapy; F10.20 Alcohol dependence, uncomplicated; G25.0 Essential tremor; I16.0 Hypertensive urgency
CPT/HCPCS: 36415; 71045; 78452; 80048; 80061; 84443; 84484; 85025; 85610; 85730; 93005; 93017; 96361; 96374; 96375; 96376; 99285-25; A9500; G0379; J0780; J1200; J1650; J1885; J2060; J2270; J2405; J2785; J3010; J7030

== ENCOUNTER 2018-05-12 14:16 | Emergency (ER) | payer SELFPAY ==
[~2018-05-12] VITALS: Ht 167.6 cm; Wt 85.3 kg
[~2018-05-12 14:16] MED LIST changes: +AZIT250T PO; +LISI-334 PO; +METH4TAB2 PO; +TRAM50TA PO; +TRAZ-86 PO; -TRAZ100T12 PO
[2018-05-12 14:42] VITALS: BP 172/110
[2018-05-12] MEDS ORDERED: diazePAM 5 MG TABLET PO ONE (15:30)
[2018-05-12] MEDS ORDERED: ONDANSETRON ODT 4 MG TAB.RAPDIS. PO ONE (15:30)
[2018-05-12] MEDS ORDERED: fentaNYL PF VIAL 100 MCG/2 ML VIAL IM ONE (15:30)
[2018-05-12] MEDS ORDERED: DIAZ5TAB PO (15:52)
[2018-05-12] MEDS ORDERED: HYDR-2762 PO (15:52)
--- NOTE | 2018-05-12 15:52 | PHYS DOC ---
Past Medical History Past Medical History: Anxiety, Arthritis, Diverticulitis, Hypertension, [place], Migraines, Other Additional Past Medical Histor: CHRONIC BACK/NECK PAIN, DRUG DEPENDENCE Past Surgical History: Angioplasty, Appendectomy, Other Additional Past Surgical Histo: hip, foot, hand, cardiac stent Alcohol Use: Heavy Drug Use: Cocaine, Marijuana Adult General Chief Complaint Chief Complaint: HEADACHE HPI HPI Patient is a 48 year old male with history of hypertension, anxiety, [place], migraine headaches, who presents today complaining over 10 out of 10 exacerbation of chronic migraine headache and neck pain. Patient denies any known injury. He states symptoms have gotten worse in the last 2 days. He is requesting pain relief and be discharged. Review of Systems Review of Systems Constitutional: Denies fever or chills [] Eyes: Denies change in visual acuity, redness, or eye pain [] HENT: Denies nasal congestion or sore throat [] Respiratory: Denies cough or shortness of breath [] Cardiovascular: No additional information not addressed in HPI [] GI: Denies abdominal pain, nausea, vomiting, bloody stools or diarrhea [] : Denies dysuria or hematuria [] Musculoskeletal: Reports neck pain, Integument: Denies rash or skin lesions [] Neurologic: Reports chronic migraine headache, denies, focal weakness or sensory changes [] All other systems were reviewed and found to be within normal limits, except as documented in this note. Current Medications Current Medications Current Medications Medications (Trade) Dose Ordered Sig/Khloe Start Time Stop Time Status Last Admin Dose Admin Diazepam (Valium) 5 mg 1X ONCE 05/12/18 15:30 05/12/18 15:31 DC 05/12/18 15:30 5 MG Fentanyl Citrate (Fentanyl 2ml Vial) 50 mcg 1X ONCE 05/12/18 15:30 05/12/18 15:31 DC 05/12/18 15:30 50 MCG Ondansetron HCl (Zofran Odt) 4 mg 1X ONCE 05/12/18 15:30 05/12/18 15:31 DC 05/12/18 15:29 4 MG Allergies Allergies Allergies Coded Allergies Type Severity Reaction Last Updated Verified hydromorphone Allergy Intermediate 02/21/18 Yes Physical Exam Physical Exam Constitutional: Well developed, well nourished, no acute distress, non-toxic appearance. [] HENT: Normocephalic, atraumatic, bilateral external ears normal, oropharynx moist, no oral exudates, nose normal. [] Eyes: PERRLA, EOMI, conjunctiva normal, no discharge. [] Neck: Normal range of motion, no tenderness, supple, no stridor. [] Cardiovascular:Heart rate regular rhythm, no murmur [] Lungs & Thorax: Bilateral breath sounds clear to auscultation [] Abdomen: Bowel sounds normal, soft, no tenderness, no masses, no pulsatile masses. [] Skin: Warm, dry, no erythema, no rash. [] Back: No tenderness, no CVA tenderness. [] Extremities: No tenderness, no cyanosis, no clubbing, ROM intact, no edema. [] Neurologic: Alert and oriented X 3, normal motor function, normal sensory function, no focal deficits noted. Cranial nerves II through XII intact Psychologic: Affect normal, judgement normal, mood normal. [] Current Patient Data Vital Signs Vital Signs Date Time Temp Pulse Resp B/P (MAP) Pulse Ox O2 Delivery O2 Flow Rate FiO2 05/12/18 14:42 98.2 87 20 172/110 (130) 99 Room Air 98.2 EKG EKG [] Radiology/Procedures Radiology/Procedures [] Course & Med Decision Making Course & Med Decision Making Pertinent Labs and Imaging studies reviewed. (See chart for details) This is a 48-year-old male patient well known to this ED presenting today for chronic neck pain and migraine headache. Patient was given pain relief in the ED and discharged. His blood pressure was 172/110, patient states this is stemming from his pain, he states he took his blood pressure medications this morning. He was instructed to monitor his blood pressure at home. Follow-up with his PCP in the course of this week or next week. Instructed to return to the ED at any point symptoms worsen. Dragon Disclaimer Dragon Disclaimer This electronic medical record was generated, in whole or in part, using a voice recognition dictation system. Departure Departure Impression: Primary Impression: Migraine Additional Impression: Chronic neck pain Disposition: HOME, SELF-CARE Condition: STABLE Referrals: NO PCP (PCP) follow up with your doctor as soon as you can Patient Instructions: Migraine Headache Additional Instructions: You were evaluated in the emergency room for chronic headache and neck pain. We put you on medications, take them as prescribed. Follow-up with your doctor in one week. Scripts Diazepam (VALIUM) 5 Mg Tablet 5 MG PO TID, #10 TAB Prov: NILDA UNDERWOOD APRN 05/12/18 Hydrocodone Bit/Acetaminophen (HYDROCODONE-APAP 7.5-325 ) 1 Each Tablet 1 TAB PO PRN Q6HRS PRN for PAIN, #10 TAB 0 Refills Prov: NILDA UNDERWOOD APRN 05/12/18 Problem Qualifiers Primary Impression: Migraine Migraine type: unspecified Status migrainosus presence: without status migrainosus Intractability: not intractable Qualified Codes: G43.909 - Migraine, unspecified, not intractable, without status migrainosus NILDA UNDERWOOD APRN May 12, 2018 15:52
== END 2018-05-12 16:02 | disposition home or self-care (01) ==
LOC: ER 14:16
DX: G43.909 Migraine, unspecified, not intractable, without status migrainosus (principal); G89.29 Other chronic pain; M54.2 Cervicalgia; F41.9 Anxiety disorder, unspecified; M19.90 Unspecified osteoarthritis, unspecified site; I10 Essential (primary) hypertension; I25.2 Old myocardial infarction; Z90.89 Acquired absence of other organs; F10.20 Alcohol dependence, uncomplicated; Y90.9 Presence of alcohol in blood, level not specified; Z88.5 Allergy status to narcotic agent
CPT/HCPCS: 96372; 99283; J3010; Q0162

== ENCOUNTER 2018-05-25 18:52 | Emergency (ER) | payer SELFPAY ==
[~2018-05-25] VITALS: Ht 167.6 cm; Wt 85.3 kg
[~2018-05-25 18:52] MED LIST changes: +HYDR-2762 PO
[2018-05-25 19:22] VITALS: BP 119/78
[2018-05-25] MEDS: ORPHENADRINE CITRATE 60 MG/2 ML VIAL. IM ONE (20:01)
[2018-05-25] MEDS: HYDROcodone/APAP 7.5/325MG 1 TAB TABLET PO ONE (20:02)
[2018-05-25] MEDS ORDERED: DICL50TA2 PO (20:38)
[2018-05-25] MEDS ORDERED: ORPH100T PO (20:38)
--- NOTE | 2018-05-25 20:38 | PHYS DOC ---
Past Medical History Past Medical History: Anxiety, Arthritis, Diverticulitis, Hypertension, [place], Migraines, Other Additional Past Medical Histor: CHRONIC BACK/NECK PAIN, DRUG DEPENDENCE Past Surgical History: Angioplasty, Appendectomy, Other Additional Past Surgical Histo: hip, foot, hand, cardiac stent Alcohol Use: Heavy Drug Use: Cocaine, Marijuana Adult General Chief Complaint Chief Complaint: SHORTNESS OF BREATH HPI HPI 48-year-old male presents for evaluation of "it hurts in my left lung when I move". Patient points to the left upper thoracic area as the area of pain. He denies any new activities, denies lifting. He did tell the nurse that couple days ago he twisted kitten under his mother's bed, thinks he may have injured his back that way. Patient states it only hurts when he moves. Denies chest pain. States he is not short of breath, only tries to take more shallow breaths because it hurts when he moves that area. Review of Systems Review of Systems Constitutional: Denies fever or chills [] Eyes: Denies change in visual acuity, redness, or eye pain [] HENT: Denies nasal congestion or sore throat [] Respiratory: Denies cough or shortness of breath [] Cardiovascular: No additional information not addressed in HPI [] GI: Denies abdominal pain, nausea, vomiting, bloody stools or diarrhea [] : Denies dysuria or hematuria [] All other systems were reviewed and found to be within normal limits, except as documented in this note. Current Medications Current Medications Current Medications Medications (Trade) Dose Ordered Sig/Khloe Start Time Stop Time Status Last Admin Dose Admin Acetaminophen/ Hydrocodone Bitart (Lortab 7.5/325) 1 tab 1X ONCE 05/25/18 19:45 05/25/18 19:46 DC 05/25/18 20:02 1 TAB Orphenadrine Citrate (Norflex) 60 mg 1X ONCE 05/25/18 19:45 05/25/18 19:47 DC 05/25/18 20:01 60 MG Allergies Allergies Allergies Coded Allergies Type Severity Reaction Last Updated Verified hydromorphone Allergy Intermediate 02/21/18 Yes Physical Exam Physical Exam Constitutional: Well developed, well nourished, no acute distress, non-toxic appearance. [] Cardiovascular:Heart rate regular rhythm, no murmur [] Lungs & Thorax: Bilateral breath sounds clear to auscultation [] Skin: Warm, dry, no erythema, no rash. [] Back: Left upper thoracic musculature over the latissimus dorsi tenderness to touch, no CVA tenderness. [] Extremities: No tenderness, no cyanosis, no clubbing, ROM intact, no edema. [] Neurologic: Alert and oriented X 3, normal motor function, normal sensory function, no focal deficits noted. [] Psychologic: Affect normal, judgement normal, mood normal. [] Current Patient Data Vital Signs Vital Signs Date Time Temp Pulse Resp B/P (MAP) Pulse Ox O2 Delivery O2 Flow Rate FiO2 05/25/18 19:22 98.4 57 22 119/78 (92) 99 Room Air 98.4 EKG EKG [] Radiology/Procedures Radiology/Procedures [Chest x-ray negative] Course & Med Decision Making Course & Med Decision Making Pertinent Labs and Imaging studies reviewed. (See chart for details) [X-ray of the chest is negative, patient is feeling better after pain medications in emergency room. Discussed with him that this is likely muscular back pain, he agrees and states he understands the hurts only when he moves. He would like a prescription for Voltaren and muscle relaxer. Follow-up with primary care doctor. Stable for discharge home.] Dragon Disclaimer Dragon Disclaimer This electronic medical record was generated, in whole or in part, using a voice recognition dictation system. Departure Departure Impression: Primary Impression: Back pain Disposition: HOME, SELF-CARE Condition: STABLE Referrals: NO PCP (PCP) Patient Instructions: Back Pain, Adult Scripts Orphenadrine Citrate (ORPHENADRINE CITRATE) 100 Mg Tablet.er 1 TAB PO BID PRN for PAIN, #20 TAB 1 Refill Prov: MILLIE SO APRN 05/25/18 Diclofenac Potassium (DICLOFENAC POTASSIUM) 50 Mg Tablet 1 TAB PO PRN TID PRN for PAIN, #30 TAB Prov: MILLIE SO APRN 05/25/18 MILLIE SO APRN May 25, 2018 20:38
--- NOTE | 2018-05-25 22:41 | RAD ---
PROCEDURE: CHEST PA LATERAL CLINICAL INDICATION: Chest pain COMPARISON: 07/23/2017 FINDINGS: No pneumothorax identified. Cardiac and mediastinal contours unremarkable. No pulmonary consolidation or acute airspace disease. No acute osseous abnormalities identified. IMPRESSION: No pulmonary consolidation or acute airspace disease. Electronically signed by: Danilo Quick DO (05/25/2018 10:38 PM) [facility]
== END 2018-05-25 20:49 | disposition home or self-care (01) ==
LOC: ER 18:52
DX: M54.6 Pain in thoracic spine (principal); F41.9 Anxiety disorder, unspecified; M19.90 Unspecified osteoarthritis, unspecified site; I10 Essential (primary) hypertension; I25.2 Old myocardial infarction; G43.909 Migraine, unspecified, not intractable, without status migrainosus; F10.20 Alcohol dependence, uncomplicated; Z90.89 Acquired absence of other organs; Y90.0 Blood alcohol level of less than 20 mg/100 ml; Z88.5 Allergy status to narcotic agent
CPT/HCPCS: 71046; 96372; 99284; J2360

== ENCOUNTER 2018-07-19 16:21 | Emergency (ER) | payer SELFPAY ==
[~2018-07-19] VITALS: Ht 167.6 cm; Wt 81.6 kg
[~2018-07-19 16:21] MED LIST changes: +DICL50TA2 PO; -HYDR-2762 PO; +HYDR-2765 PO; +HYDR-3164 PO; -HYDR-971 PO; +ORPH100T PO; -OXYC-323 PO; +OXYC1TAB15 PO
[2018-07-19 16:24] VITALS: BP 179/109
--- NOTE | 2018-07-19 16:40 | PHYS DOC ---
Past Medical History Past Medical History: Anxiety, Arthritis, Diverticulitis, Hypertension, [place], Migraines, Other Additional Past Medical Histor: CHRONIC BACK/NECK PAIN, DRUG DEPENDENCE Past Surgical History: Angioplasty, Appendectomy, Other Additional Past Surgical Histo: hip, foot, hand, cardiac stent Alcohol Use: Heavy Drug Use: Cocaine, Marijuana Adult General Chief Complaint Chief Complaint: Neck Pain HPI HPI Patient is a 48 year old male with history of hypertension, [place], migraine headaches, arthritis with chronic neck and back pain who presents today complaining of exacerbation of chronic neck pain moderate patient rates the pain as moderate and radiates throughout the body. Patient states he has tried the prescriptions he was given here for diclofenac and Norflex with no relief. Patient denies any known injury. Denies any numbness or tingling to bilateral upper and lower extremities. Review of Systems Review of Systems Constitutional: Denies fever or chills [] Musculoskeletal: Reports chronic neck pain Integument: Denies rash or skin lesions [] Neurologic: Denies headache, focal weakness or sensory changes [] All other systems were reviewed and found to be within normal limits, except as documented in this note. Current Medications Current Medications Current Medications Medications (Trade) Dose Ordered Sig/Khloe Start Time Stop Time Status Last Admin Dose Admin Diazepam (Valium) 5 mg 1X ONCE 07/19/18 16:45 07/19/18 16:46 Fentanyl Citrate (Fentanyl 2ml Vial) 50 mcg 1X ONCE 07/19/18 16:45 07/19/18 16:46 Methylprednisolone Sodium Succinate (SOLU-Medrol 125MG VIAL) 125 mg 1X ONCE 07/19/18 16:45 07/19/18 16:46 Allergies Allergies Allergies Coded Allergies Type Severity Reaction Last Updated Verified hydromorphone Allergy Intermediate 02/21/18 Yes Physical Exam Physical Exam Constitutional: Well developed, well nourished, no acute distress, non-toxic appearance. [] Neck: Normal range of motion, no tenderness, supple, no stridor. [] Cardiovascular:Heart rate regular rhythm, no murmur [] Lungs & Thorax: Bilateral breath sounds clear to auscultation [] Abdomen: Bowel sounds normal, soft, no tenderness, no masses, no pulsatile masses. [] Skin: Warm, dry, no erythema, no rash. [] Back: No tenderness, no CVA tenderness. [] Extremities: No tenderness, no cyanosis, no clubbing, ROM intact, no edema. [] Neurologic: Alert and oriented X 3, normal motor function, normal sensory function, no focal deficits noted. [] Psychologic: Affect normal, judgement normal, mood normal. [] Current Patient Data Vital Signs Vital Signs Date Time Temp Pulse Resp B/P (MAP) Pulse Ox O2 Delivery O2 Flow Rate FiO2 07/19/18 16:24 98.4 92 18 179/109 (132) 99 Room Air 98.4 EKG EKG [] Radiology/Procedures Radiology/Procedures [] Course & Med Decision Making Course & Med Decision Making Pertinent Labs and Imaging studies reviewed. (See chart for details) This is a 48-year-old male patient well known to this ED presenting today for chronic neck pain. No known injury. Mother works in the ED. Will be offered pain relief in the ED. Discharged to home. Blood pressure 179/109, heart rate in the 90s , has history of hypertension. Encouraged to continue taking his blood pressure medications and following up with his own PCP. Dragon Disclaimer Dragon Disclaimer This electronic medical record was generated, in whole or in part, using a voice recognition dictation system. Departure Departure Impression: Primary Impression: Chronic neck pain Additional Impression: Hypertension Disposition: 01 HOME, SELF-CARE Condition: STABLE Referrals: NO PCP (PCP) Follow-up with the primary care doctor in the course of this week or next week Patient Instructions: Cervical Radiculopathy, [id number], Hypertension Additional Instructions: You were evaluated in the ED for chronic neck pain. Your blood pressure was 179/ 109, ensure you are taking your blood pressure medications. Please continue following up with your own doctor for medical management. Scripts Methylprednisolone (MEDROL) 4 Mg Tab.ds.pk 1 PKG PO UD, #1 PKG Prov: NILDA UNDERWOOD [employer] 07/19/18 Alprazolam (XANAX) 2 Mg Tablet 1 TAB PO TID, #15 TAB Prov: NILDA UNDERWOOD [employer] 07/19/18 Problem Qualifiers Additional Impression: Hypertension Hypertension type: unspecified Qualified Codes: I10 - Essential (primary) hypertension NILDA UNDERWOOD IRMA Jul 19, 2018 16:40
[2018-07-19] MEDS ORDERED: METH4TAB2 PO (16:45)
[2018-07-19] MEDS ORDERED: fentaNYL PF VIAL 100 MCG/2 ML VIAL IM ONE (16:45)
[2018-07-19] MEDS ORDERED: methylPREDNISolone SOD SUCC PF 125 MG/2 ML VIAL. IM ONE (16:45)
[2018-07-19] MEDS ORDERED: ALPR2TAB2 PO (16:45)
[2018-07-19] MEDS ORDERED: diazePAM 5 MG TABLET PO ONE (16:45)
== END 2018-07-19 17:10 | disposition home or self-care (01) ==
LOC: ER 16:21
DX: G89.29 Other chronic pain (principal); M54.2 Cervicalgia; M54.89 Other dorsalgia; I10 Essential (primary) hypertension; G43.909 Migraine, unspecified, not intractable, without status migrainosus; M19.90 Unspecified osteoarthritis, unspecified site; I25.2 Old myocardial infarction; F10.20 Alcohol dependence, uncomplicated; Z98.61 Coronary angioplasty status; Z88.5 Allergy status to narcotic agent; Y90.9 Presence of alcohol in blood, level not specified
CPT/HCPCS: 96372; 99283; J2930; J3010

== ENCOUNTER 2018-08-29 17:29 | Emergency (ER) | payer SELFPAY ==
[~2018-08-29] VITALS: Ht 167.6 cm; Wt 81.6 kg
[2018-08-29 17:29] VITALS: BP 171/101
[2018-08-29] MEDS ORDERED: fentaNYL PF VIAL 100 MCG/2 ML VIAL IV ONE (18:15)
[2018-08-29] MEDS ORDERED: HYDROcodone/APAP 5/325MG 1 TAB TABLET PO ONE (18:15)
[2018-08-29] MEDS ORDERED: HYDR-2765 PO (18:55)
[2018-08-29] MEDS ORDERED: CYCL10TA2 PO (18:55)
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
== END 2018-08-29 19:00 | disposition home or self-care (01) ==
LOC: ER 17:31
DX: T69.9XXA Effect of reduced temperature, unspecified, initial encounter (principal); F41.9 Anxiety disorder, unspecified; M19.90 Unspecified osteoarthritis, unspecified site; I10 Essential (primary) hypertension; I25.2 Old myocardial infarction; G43.909 Migraine, unspecified, not intractable, without status migrainosus; F17.200 Nicotine dependence, unspecified, uncomplicated; F10.20 Alcohol dependence, uncomplicated; Y90.9 Presence of alcohol in blood, level not specified; Z90.89 Acquired absence of other organs; G89.29 Other chronic pain; Z98.61 Coronary angioplasty status; Z88.5 Allergy status to narcotic agent
CPT/HCPCS: 96374; 99284; J3010

== ENCOUNTER 2020-01-09 15:51 | Emergency (ER) | payer MEDICAID ==
[~2020-01-09] VITALS: Ht 167.6 cm; Wt 86.3 kg
[~2020-01-09 15:51] MED LIST changes: +TRAZ-123 PO; -TRAZ-86 PO
--- NOTE | 2020-01-09 16:21 | RAD ---
EXAM: Chest, single view. HISTORY: Chest pain. COMPARISON: 05/25/2018 FINDINGS: A frontal view of the chest is obtained. There is no infiltrate, pleural effusion or pneumothorax. The heart is normal in size. There is a cardiac pacemaker with leads in expected position. There is an incidental healed left clavicle fracture. IMPRESSION: No acute pulmonary finding. Electronically signed by: Jane Pate MD (01/09/2020 4:18 PM) [id number]
--- NOTE | 2020-01-09 16:29 | RAD ---
Examination: CT HEAD WO CONTRAST History: Reason: headache Comparison/Correlation: 03/12/2017 CT head without contrast Findings: Axial images of the head were obtained without contrast. Ventricles are of normal size. No intracranial hemorrhage, midline shift or mass effect. Mild chronic ischemic changes and white matter are present. Mild atrophy noted. No depressed fracture or suspicious bony process. Visualize paranasal sinuses are unremarkable other than the developmental absence of frontal sinuses. Impression: No suspicious process. No significant change. Electronically signed by: Loyd Nance MD (01/09/2020 4:26 PM) [id number]
--- NOTE | 2020-01-09 16:30 | EKG ---
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
[2020-01-09 16:46] LABS: BASO # 0.1 x10^3/uL (0.0-0.2); BASO % 1 % (0-3); EOS # 0.1 x10^3/uL (0.0-0.7); EOS % 1 % (0-3); HEMATOCRIT 44.9 % (39.0-53.0); HEMOGLOBIN 15.2 g/dL (13.0-17.5); LYMPH # 1.9 x10^3/uL (1.0-4.8); LYMPH % 21 % (24-48); MEAN CORPUSCULAR HEMOGLOBIN 32 pg (25-35); MEAN CORPUSCULAR HGB CONC 34 g/dL (31-37); MEAN CORPUSCULAR VOLUME 94 fL (79-100); MONO # 0.6 x10^3/uL (0.0-1.1); MONO % 7 % (0-9); NEUT # 6.3 x10^3/uL (1.8-7.7); NEUT % 70 % (31-73); PLATELET COUNT 299 x10^3/uL (140-400); RED CELL DISTRIBUTION WIDTH 15.5 % (11.5-14.5)
[2020-01-09 16:53] LABS: CALCIUM 8.7 mg/dL (8.5-10.1); GFR 79.1; POTASSIUM 4.2 mmol/L (3.5-5.1)
[2020-01-09 16:55] LABS: PROTHROMBIN TIME PATIENT 12.7 SEC (11.7-14.0)
[2020-01-09 16:59] LABS: ALBUMIN 3.7 g/dL (3.4-5.0); MAGNESIUM 2.4 mg/dL (1.8-2.4); TOTAL BILIRUBIN 0.2 mg/dL (0.2-1.0); TOTAL PROTEIN 7.4 g/dL (6.4-8.2)
[2020-01-09] MEDS ORDERED: MORPHINE SULFATE 4 MG/ML VIAL. IV ONE (17:15)
[2020-01-09 17:41] VITALS: BP 167/98
[2020-01-09] MEDS ORDERED: traMADol 50 MG TABLET PO ONE (17:45)
--- NOTE | 2020-01-09 18:57 | PHYS DOC ---
Past Medical History Past Medical History: Anxiety, Arthritis, Diverticulitis, Hypertension, [place], Migraines, Other Additional Past Medical Histor: CHRONIC BACK/NECK PAIN, DRUG DEPENDENCE Past Surgical History: Angioplasty, Appendectomy, Other Additional Past Surgical Histo: hip, foot, hand, cardiac stent Smoking Status: Current Every Day Smoker Additional Information: 1 pack per week Alcohol Use: Heavy Drug Use: Cocaine, Marijuana General Adult EDM: Chief Complaint: CHEST PAIN HPI: HPI: Patient is a 49 year old male who presented to ER today for evaluation of chest pain, heart palpitation and anxiety for several days.. Patient is also having headache. Patient had history of a hypertension, chronic back pain, chronic hea dache, narcotic dependent. Patient also on Xanax. He has history of anxiety. Patient has history of coronary disease, he has an AICD placed. Review of Systems: Review of Systems: Constitutional: Denies fever or chills. [] Eyes: Denies change in visual acuity. [] HENT: Denies nasal congestion or sore throat. [] Respiratory: Denies cough or shortness of breath. [] Cardiovascular: Positive for chest pain GI: Denies abdominal pain, nausea, vomiting, bloody stools or diarrhea. [] : Denies dysuria. [] Musculoskeletal: Denies back pain or joint pain. [] Integument: Denies rash. [] Neurologic: Positive for headache, no focal weakness or sensory changes. [] Endocrine: Denies polyuria or polydipsia. [] Lymphatic: Denies swollen glands. [] Psychiatric: Denies depression or anxiety. [] Heart Score: Risk Factors: Risk Factors: DM, Current or recent (<one month) smoker, HTN, HLP, family history of CAD, obesity. Risk Scores: Score 0 - 3: 2.5% MACE over next 6 weeks - Discharge Home Score 4 - 6: 20.3% MACE over next 6 weeks - Admit for Clinical Observation Score 7 - 10: 72.7% MACE over next 6 weeks - Early Invasive Strategies Current Medications: Current Medications Medications (Trade) Dose Ordered Sig/Khloe Start Time Stop Time Status Last Admin Dose Admin Lorazepam (Ativan Inj) 1 mg 1X ONCE 01/09/20 17:15 01/09/20 17:17 DC 01/09/20 17:37 1 MG Morphine Sulfate (Morphine Sulfate) 4 mg 1X ONCE 01/09/20 17:15 01/09/20 17:29 DC Tramadol HCl (Ultram) 50 mg 1X ONCE 01/09/20 17:45 01/09/20 17:46 DC 01/09/20 17:36 50 MG Allergies: Allergies: Allergies Coded Allergies Type Severity Reaction Last Updated Verified hydromorphone Allergy Intermediate 02/21/18 Yes Physical Exam: PE: Constitutional: Well developed, well nourished, no acute distress, non-toxic appearance. HENT: Normocephalic, atraumatic, bilateral external ears normal, oropharynx moist, no oral exudates, nose normal. [] Eyes: PERRLA, EOMI, conjunctiva normal, no discharge. [] Neck: Normal range of motion, no tenderness, supple, no stridor. [] Cardiovascular:Heart rate regular rhythm, no murmur [] Lungs & Thorax: Bilateral breath sounds clear to auscultation [] Abdomen: Bowel sounds normal, soft, no tenderness, no masses, no pulsatile masses. [] Skin: Warm, dry, no erythema, no rash. [] Back: No tenderness, no CVA tenderness. [] Extremities: No tenderness, no cyanosis, no clubbing, ROM intact, no edema. [] Neurologic: Alert and oriented X 3, normal motor function, normal sensory function, no focal deficits noted. [] Psychologic: Affect normal, judgement normal, mood normal. Patient appears to be very anxious Current Patient Data: Labs: Laboratory Tests Test 01/09/20 16:35 White Blood Count 9.0 x10^3/uL (4.0-11.0) Red Blood Count 4.80 x10^6/uL (4.30-5.70) Hemoglobin 15.2 g/dL (13.0-17.5) Hematocrit 44.9 % (39.0-53.0) Mean Corpuscular Volume 94 fL (79-100) Mean Corpuscular Hemoglobin 32 pg (25-35) Mean Corpuscular Hemoglobin Concent 34 g/dL (31-37) Red Cell Distribution Width 15.5 % (11.5-14.5) H Platelet Count 299 x10^3/uL (140-400) Neutrophils (%) (Auto) 70 % (31-73) Lymphocytes (%) (Auto) 21 % (24-48) L Monocytes (%) (Auto) 7 % (0-9) Eosinophils (%) (Auto) 1 % (0-3) Basophils (%) (Auto) 1 % (0-3) Neutrophils # (Auto) 6.3 x10^3/uL (1.8-7.7) Lymphocytes # (Auto) 1.9 x10^3/uL (1.0-4.8) Monocytes # (Auto) 0.6 x10^3/uL (0.0-1.1) Eosinophils # (Auto) 0.1 x10^3/uL (0.0-0.7) Basophils # (Auto) 0.1 x10^3/uL (0.0-0.2) Prothrombin Time 12.7 SEC (11.7-14.0) Prothrombin Time INR 1.0 (0.8-1.1) Activated Partial Thromboplast Time 27 SEC (24-38) Sodium Level 139 mmol/L (136-145) Potassium Level 4.2 mmol/L (3.5-5.1) Chloride Level 105 mmol/L (98-107) Carbon Dioxide Level 31 mmol/L (21-32) Anion Gap 3 (6-14) L Blood Urea Nitrogen 13 mg/dL (8-26) Creatinine 1.0 mg/dL (0.7-1.3) Estimated GFR (Cockcroft-Gault) 79.1 BUN/Creatinine Ratio 13 (6-20) Glucose Level 159 mg/dL (70-99) H Calcium Level 8.7 mg/dL (8.5-10.1) Magnesium Level 2.4 mg/dL (1.8-2.4) Total Bilirubin 0.2 mg/dL (0.2-1.0) Aspartate Amino Transferase (AST) 39 U/L (15-37) H Alanine Aminotransferase (ALT) 63 U/L (16-63) Alkaline Phosphatase 125 U/L (46-116) H Troponin I Quantitative < 0.017 ng/mL (0.000-0.055) KV-Pli-S-Type Natriuretic Peptide 268 pg/mL (0-124) H Total Protein 7.4 g/dL (6.4-8.2) Albumin 3.7 g/dL (3.4-5.0) Albumin/Globulin Ratio 1.0 (1.0-1.7) Lipase 114 U/L (73-393) Laboratory Tests 01/09/20 16:35 Laboratory Tests 01/09/20 16:35 Vital Signs: Vital Signs Date Time Temp Pulse Resp B/P (MAP) Pulse Ox O2 Delivery O2 Flow Rate FiO2 01/09/20 17:41 89 16 167/98 (121) 97 Room Air 01/09/20 15:55 98.6 98.6 EKG: EKG: EKG was done at 1558, rate of 92 bpm, sinus rhythm with prolonged VT interval. No ST segment elevation. Prolonged QRS complex. [] Radiology/Procedures: Radiology/Procedures: [][facility] [address] [place] [address] IMAGING REPORT Signed PATIENT: TIFFANIE ROBLES ACCOUNT: [id number] : 1970 LOCATION: ER AGE: 49 SEX: M EXAM STATUS: REG ER ORD. PHYSICIAN: JONE KOCH DO REASON: headache PROCEDURE: CT HEAD WO CONTRAST Examination: CT HEAD WO CONTRAST History: Reason: headache Comparison/Correlation: 03/12/2017 CT head without contrast Findings: Axial images of the head were obtained without contrast. Ventricles are of normal size. No intracranial hemorrhage, midline shift or mass effect. Mild chronic ischemic changes and white matter are present. Mild atrophy noted. No depressed fracture or suspicious bony process. Visualize paranasal sinuses are unremarkable other than the developmental absence of frontal sinuses. Impression: No suspicious process. No significant change. Electronically signed by: Loyd Nance MD (01/09/2020 4:26 PM) [id number] DICTATED and SIGNED BY: LOYD NANCE MD DATE: 01/09/20 1626 Course & Med Decision Making: Course & Med Decision Making Pertinent Labs and Imaging studies reviewed. (See chart for details) Patient signed out AGAINST MEDICAL ADVICE at 1744 while this physician was busy taking care of another critical patient. Dragon Disclaimer: Dragon Disclaimer: This electronic medical record was generated, in whole or in part, using a voice recognition dictation system. Departure Departure Impression: Primary Impression: Chest pain Disposition: AGAINST MEDICAL ADVICE Condition: STABLE Referrals: NO PCP (PCP) Justicifation of Admission Dx: Justifications for Admission: Justification of Admission Dx: N/A JONE KOCH DO Jan 09, 2020 18:57
== END 2020-01-09 17:40 | disposition left against medical advice (07) ==
LOC: ER 15:51
DX: R07.89 Other chest pain (principal); R00.2 Palpitations; G43.909 Migraine, unspecified, not intractable, without status migrainosus; I10 Essential (primary) hypertension; I25.2 Old myocardial infarction; F17.200 Nicotine dependence, unspecified, uncomplicated; F10.20 Alcohol dependence, uncomplicated; Y90.9 Presence of alcohol in blood, level not specified; Z95.1 Presence of aortocoronary bypass graft; Z95.810 Presence of automatic (implantable) cardiac defibrillator; Z95.5 Presence of coronary angioplasty implant and graft; Z88.5 Allergy status to narcotic agent
CPT/HCPCS: 36415; 70450; 71045; 80053; 83690; 83735; 83880; 84484; 85025; 85610; 85730; 93005; 96374; 99285; J2060

== ENCOUNTER 2020-05-01 00:09 | Emergency (ER) | payer MEDICAID ==
[~2020-05-01] VITALS: Ht 167.6 cm; Wt 86.4 kg
[2020-05-01] MEDS ORDERED: TRAM-48 PO (00:50)
[2020-05-01] MEDS ORDERED: ONDA4TAB7 PO (00:50)
[2020-05-01] MEDS ORDERED: METR500T PO (00:50)
[2020-05-01] MEDS ORDERED: CIPR250S2 PO (00:50)
--- NOTE | 2020-05-01 00:50 | PHYS DOC ---
Past Medical History Past Medical History: Anxiety, Arthritis, Diverticulitis, Hypertension, [place], Migraines, Other Additional Past Medical Histor: CHRONIC BACK/NECK PAIN, DRUG DEPENDENCE Past Surgical History: Angioplasty, Appendectomy, Other Additional Past Surgical Histo: hip, foot, hand, cardiac stent Smoking Status: Current Every Day Smoker Alcohol Use: Occasionally Drug Use: Cocaine, Marijuana Social History Narrative: COCAINE 3 DAYS AGO. General Adult EDM: Chief Complaint: ABDOMINAL PAIN HPI: HPI: Patient is a 50 year old male with a past medical history of diverticulitis and a past surgical history of appendectomy presents with a chief complaint of abdominal pain. Patient states he has abdominal pain for 2 days. He states pain is constant. He states pain is around his bellybutton. He states he has had associated nausea vomiting and diarrhea. Patient states pain is consistent with his diverticulitis. He is requesting Dilaudid and Benadryl. Review of Systems: Review of Systems: Review of systems: Constitutional symptoms- No fever, no chills. Eyes- No Discharge, No Visual Loss Respiratory symptoms- No shortness of breath, No wheezing, No Dyspnea on Exertion Cardiovascular Systems; No chest pain, No Palpitations, No syncope Gastrointestinal symptoms: Positive nausea positive vomiting positive diarrhea positive abdominal pain Genitourinary symptoms: No dysuria. Musculoskeletal symptoms: No back pain No extremity pain. NEUROLOGICAL Symptoms: No headache, no generalized weakness; No focal Weakness Heart Score: Risk Factors: Risk Factors: DM, Current or recent (<one month) smoker, HTN, HLP, family history of CAD, obesity. Risk Scores: Score 0 - 3: 2.5% MACE over next 6 weeks - Discharge Home Score 4 - 6: 20.3% MACE over next 6 weeks - Admit for Clinical Observation Score 7 - 10: 72.7% MACE over next 6 weeks - Early Invasive Strategies Allergies: Allergies: Allergies Coded Allergies Type Severity Reaction Last Updated Verified hydromorphone Allergy Intermediate 02/21/18 Yes Physical Exam: PE: General: alert, no acute distress. Skin: warm, dry and intact. Head:: Normocephalic, atraumatic. Neck: Trachea midline. Eyes: EOMI, Normal conjunctiva, No drainage CARDIOVASCULAR: Regular rate and rhythm RESPIRATORY: No respiratory distress Back: Full range of motion. MUSCULOSKELETAL: Full range of motion of bilateral upper and lower extremities. GASTROINTESTINAL: Abdomen soft without rebound or guarding. Patient does have tenderness periumbilical NEUROLOGICAL: Alert and noted to person, place and time. No neurological deficits observed Psychiatric: Cooperative. Normal judgment Current Patient Data: Vital Signs: Vital Signs Date Time Temp Pulse Resp B/P (MAP) Pulse Ox O2 Delivery O2 Flow Rate FiO2 05/01/20 00:26 98.5 119 20 121/79 (93) 99 Room Air 98.5 EKG: EKG: [] Radiology/Procedures: Radiology/Procedures: [] Course & Med Decision Making: Course & Med Decision Making Pertinent Labs and Imaging studies reviewed. (See chart for details) [] Patient was evaluated for chief complaint. Patient states he has a history of diverticulitis and his pain is consistent with previous episodes. Based upon history and physical exam I do not believe the patient needs any radiologic imaging. Patient treatment included pain medications. He was given a prescription for Zofran Ultram Cipro and Flagyl. Patient discharged home with instructions to follow-up with his primary care physician. Bsihnu Disclaimer: Bishnu Disclaimer: This electronic medical record was generated, in whole or in part, using a voice recognition dictation system. Departure Departure Impression: Primary Impression: Abdominal pain Disposition: HOME, SELF-CARE Condition: STABLE Referrals: OSVALDO COX MD (PCP) Patient Instructions: Abdominal Pain, Diverticulitis Scripts Ondansetron Hcl (ZOFRAN) 4 Mg Tablet 1 TAB PO Q6HRS, #20 TAB Prov: QIAN KELLY I DO 05/01/20 Metronidazole (FLAGYL) 500 Mg Tablet 1 TAB PO BID, #20 TAB Prov: QIAN KELLY I DO 05/01/20 Ciprofloxacin (CIPRO) 250 Mg/5 Ml [facility]..rec 1 TAB PO BID for 10 Days, #20 TAB 0 Refills Prov: QIAN KELLY I DO 05/01/20 Tramadol Hcl (ULTRAM) 50 Mg Tablet 1 TAB PO PRN Q6HRS PRN for pain MDD 4 Tablet(s) for 7 Days, #14 TAB 0 Refills Prov: QIAN KELLY I DO 05/01/20 Justicifation of Admission Dx: Justifications for Admission: Justification of Admission Dx: N/A QIAN KELLY DO May 01, 2020 00:50
[2020-05-01 01:06] VITALS: BP 126/69
[2020-05-01] MEDS ORDERED: traMADol 50 MG TABLET PO ONE (01:30)
[2020-05-01] MEDS ORDERED: KETOROLAC 60 MG/2 ML VIAL. IM ONE (01:30)
== END 2020-05-01 01:06 | disposition home or self-care (01) ==
LOC: ER 00:09
DX: R10.33 Periumbilical pain (principal); R11.2 Nausea with vomiting, unspecified; R19.7 Diarrhea, unspecified; I10 Essential (primary) hypertension; G43.909 Migraine, unspecified, not intractable, without status migrainosus; I25.2 Old myocardial infarction; F17.200 Nicotine dependence, unspecified, uncomplicated; G89.29 Other chronic pain; Z95.5 Presence of coronary angioplasty implant and graft; Z90.89 Acquired absence of other organs; Z88.5 Allergy status to narcotic agent
CPT/HCPCS: 96372; 99285; J1885